=== PATIENT | male | born 1960 | race Caucasian/White ===

== ENCOUNTER → 2017-01-10 | Outpatient (CLI) | payer OTHER | LOC: LABWHC1 15:32 | PROVIDERS: ATTEND Internal Medicine | DX: R91.1 Solitary pulmonary nodule (principal) | CPT/HCPCS: 36415; 86480 ==

== ENCOUNTER 2018-08-19 12:55 | Emergency (ER) | payer OTHER ==
[2018-08-19 13:16] VITALS: RESP 18; TEMP 97.9
[2018-08-19] MEDS ORDERED: ALBUTEROL NEBULIZED 2.5 MG/3 ML INHALATION STA (13:47)
[2018-08-19] MEDS ORDERED: DEXAMETHASONE SOD PHOSPHATE 10 MG/ML 1 ML VIAL IV STA (13:47)
[2018-08-19] MEDS ORDERED: IPRATROPIUM-ALBUTEROL 3 ML NEB INHALATION STA (13:48)
--- NOTE | 2018-08-19 13:56 | ED ---
General Adult HPI - General Chief complaint: Shortness of Breath Stated complaint: SOB Time Seen by Provider: 08/19/18 13:15 Source: patient, RN notes reviewed, old records reviewed Mode of arrival: wheelchair Limitations: no limitations - History of Present Illness Initial comments: 58-year-old male presents for evaluation of cough and dyspnea. Patient has history of COPD and recurrent pneumonia. He states that he has had worsening cough which is productive of yellow mucous for the past 5 days. He continues to smoke. Denies significant chest pain, denies abdominal pain or nausea vomiting. Denies lower extremity pain or swelling. No history of CAD or CHF. Patient does report subjective fever and chills. - Related Data Home Medications Medication Instructions Recorded Confirmed Albuterol Sulfate [Proair Hfa] 2 puff INHALATION RT-QID PRN 06/20/14 08/19/18 Ibuprofen [Motrin] 800 mg PO BID PRN 06/20/14 08/19/18 Mometasone/Formoterol [Dulera 200 2 puff INHALATION BID 07/22/14 08/19/18 Mcg/5 Mcg Inhaler] Previous Rx's Medication Instructions Recorded Azithromycin [Zithromax Z-pack] 0 mg PO DIRECTED #6 tab 08/19/18 Permethrin 5% Cream [Elimite] 1 applic TOPICAL ONCE #1 bottle 08/19/18 predniSONE 50 mg PO DAILY #5 tab 08/19/18 Allergies Allergy/AdvReac Type Severity Reaction Status Date / Time acetaminophen AdvReac Nausea & Verified 08/19/18 13:53 [From Darvocet-N] Vomiting propoxyphene HCl AdvReac Nausea & Verified 08/19/18 13:53 [From Darvon] Vomiting propoxyphene napsylate AdvReac Nausea & Verified 08/19/18 13:53 [From Darvocet-N] Vomiting Review of Systems ROS Statement: Those systems with pertinent positive or pertinent negative responses have been documented in the HPI. ROS Other: All systems not noted in ROS Statement are negative. Past Medical History Past Medical History: COPD, Pneumonia Additional Past Medical History / Comment(s): CHUNG CATARACTS, HX OF MENINGITIS CHILD, states is legally blind History of Any Multi-Drug Resistant Organisms: None Reported Past Surgical History: No Surgical Hx Reported Past Anesthesia/Blood Transfusion Reactions: No Reported Reaction Past Psychological History: No Psychological Hx Reported Smoking Status: Current every day smoker General Exam Limitations: no limitations General appearance: alert, in no apparent distress Head exam: Present: atraumatic, normocephalic Eye exam: Present: normal appearance, PERRL ENT exam: Present: normal exam Neck exam: Present: normal inspection. Absent: tenderness Respiratory exam: Present: respiratory distress, wheezes, decreased breath sounds, prolonged expiratory Cardiovascular Exam: Present: regular rate, normal rhythm GI/Abdominal exam: Present: soft. Absent: distended, tenderness, guarding Extremities exam: Present: normal inspection, normal capillary refill. Absent: pedal edema, calf tenderness Neurological exam: Present: alert, oriented X3, CN II-XII intact. Absent: motor sensory deficit Psychiatric exam: Present: normal affect, normal mood Skin exam: Present: warm, dry, intact. Absent: cyanosis, diaphoretic Course Vital Signs 08/19/18 08/19/18 08/19/18 13:13 13:58 14:04 Temperature 97.9 F Pulse Rate 89 88 94 Respiratory 18 Rate Blood Pressure 105/66 O2 Sat by Pulse 94 L Oximetry EKG Findings - EKG Comments: EKG Findings:: EKG: Sinus rhythm with marked sinus arrhythmia, no ST segment changes, T waves are upright, rate of 64, MD interval 172, QRS duration 88, QTC 412 Medical Decision Making - Medical Decision Making 58-year-old male presenting for evaluation of cough and dyspnea. Patient has history COPD. On initial exam he has decreased air entry and wheezing throughout. No significant distress. He is given albuterol, Atrovent, steroids in the emergency department. Laboratory studies are obtained, normal white blood cell count, stable hemoglobin, patient has elevated AST, ALP, alkaline phosphatase, and total bilirubin is mildly elevated. He has no abdominal pain. He is an alcoholic and admits to regular heavy consumption of alcohol. Chest x-rays obtained, this is negative for focal pneumonia, there is some scarring throughout all lung silverman. On reevaluation patient is feeling much better, improved air entry. He is eager for discharge. He will be prescribed steroids, azithromycin, and will continue nebulized albuterol at home. He is also prescribed permethrin for scabies rash on the left upper extremity - Lab Data Result diagrams: 08/19/18 14:19 08/19/18 14:19 Lab Results 08/19/18 08/19/18 08/19/18 Range/Units 14:19 14:19 14:19 WBC 9.8 (3.8-10.6) k/uL RBC 4.88 (4.30-5.90) m/uL Hgb 17.0 (13.0-17.5) gm/dL Hct 51.6 (39.0-53.0) % MCV 105.8 H (80.0-100.0) fL MCH 34.9 (25.0-35.0) pg MCHC 33.0 (31.0-37.0) g/dL RDW 12.7 (11.5-15.5) % Plt Count 202 (150-450) k/uL Neutrophils % 80 % Lymphocytes % 13 % Monocytes % 4 % Eosinophils % 1 % Basophils % 1 % Neutrophils # 7.8 H (1.3-7.7) k/uL Lymphocytes # 1.2 (1.0-4.8) k/uL Monocytes # 0.4 (0-1.0) k/uL Eosinophils # 0.1 (0-0.7) k/uL Basophils # 0.1 (0-0.2) k/uL Macrocytosis Slight PT (9.0-12.0) sec INR (<1.2) APTT (22.0-30.0) sec Sodium 137 (137-145) mmol/L Potassium 4.3 (3.5-5.1) mmol/L Chloride 102 (98-107) mmol/L Carbon Dioxide 25 (22-30) mmol/L Anion Gap 10 mmol/L BUN 8 L (9-20) mg/dL Creatinine 0.46 L (0.66-1.25) mg/dL Est GFR (CKD-EPI)AfAm >90 (>60 ml/min/1.73 sqM) Est GFR (CKD-EPI)NonAf >90 (>60 ml/min/1.73 sqM) Glucose 97 (74-99) mg/dL Calcium 9.2 (8.4-10.2) mg/dL Magnesium 2.0 (1.6-2.3) mg/dL Total Bilirubin 1.5 H (0.2-1.3) mg/dL AST 167 H (17-59) U/L ALT 110 H (21-72) U/L Alkaline Phosphatase 140 H (38-126) U/L Total Creatine Kinase 31 L (55-170) U/L CK-MB (CK-2) 0.9 (0.0-2.4) ng/mL CK-MB (CK-2) Rel Index 2.9 Troponin I <0.012 (0.000-0.034) ng/mL NT-Pro-B Natriuret Pep pg/mL Total Protein 8.6 H (6.3-8.2) g/dL Albumin 3.7 (3.5-5.0) g/dL 08/19/18 08/19/18 Range/Units 14:19 14:19 WBC (3.8-10.6) k/uL RBC (4.30-5.90) m/uL Hgb (13.0-17.5) gm/dL Hct (39.0-53.0) % MCV (80.0-100.0) fL MCH (25.0-35.0) pg MCHC (31.0-37.0) g/dL RDW (11.5-15.5) % Plt Count (150-450) k/uL Neutrophils % % Lymphocytes % % Monocytes % % Eosinophils % % Basophils % % Neutrophils # (1.3-7.7) k/uL Lymphocytes # (1.0-4.8) k/uL Monocytes # (0-1.0) k/uL Eosinophils # (0-0.7) k/uL Basophils # (0-0.2) k/uL Macrocytosis PT 11.3 (9.0-12.0) sec INR 1.2 H (<1.2) APTT 23.1 (22.0-30.0) sec Sodium (137-145) mmol/L Potassium (3.5-5.1) mmol/L Chloride (98-107) mmol/L Carbon Dioxide (22-30) mmol/L Anion Gap mmol/L BUN (9-20) mg/dL Creatinine (0.66-1.25) mg/dL Est GFR (CKD-EPI)AfAm (>60 ml/min/1.73 sqM) Est GFR (CKD-EPI)NonAf (>60 ml/min/1.73 sqM) Glucose (74-99) mg/dL Calcium (8.4-10.2) mg/dL Magnesium (1.6-2.3) mg/dL Total Bilirubin (0.2-1.3) mg/dL AST (17-59) U/L ALT (21-72) U/L Alkaline Phosphatase (38-126) U/L Total Creatine Kinase (55-170) U/L CK-MB (CK-2) (0.0-2.4) ng/mL CK-MB (CK-2) Rel Index Troponin I (0.000-0.034) ng/mL NT-Pro-B Natriuret Pep 85 pg/mL Total Protein (6.3-8.2) g/dL Albumin (3.5-5.0) g/dL Disposition Clinical Impression: Acute exacerbation of chronic obstructive airways disease, Scabies Disposition: HOME SELF-CARE Condition: Fair Instructions: Chronic Bronchitis (ED), Scabies (ED) Prescriptions: Azithromycin [Zithromax Z-pack] 0 mg PO DIRECTED #6 tab Permethrin 5% Cream [Elimite] 1 applic TOPICAL ONCE #1 bottle predniSONE 50 mg PO DAILY #5 tab Is patient prescribed a controlled substance at d/c from ED?: No Referrals: Mandeep Ernandez DO [Primary Care Provider] - 1-2 days Time of Disposition: 15:42
[2018-08-19 14:27] LABS: Basophils # (A) 0.1 k/uL (0-0.2); Basophils % (A) 1 %; Eosinophils # (A) 0.1 k/uL (0-0.7); Eosinophils % (A) 1 %; HCT 51.6 % (39.0-53.0); Lymphocytes # (A) 1.2 k/uL (1.0-4.8); Lymphocytes % (A) 13 %; MCH 34.9 pg (25.0-35.0); MCV 105.8 fL (80.0-100.0); Macrocytosis Slight; Mean Platelet Volume 7.2; Monocytes # (A) 0.4 k/uL (0-1.0); Monocytes % (A) 4 %; Neutrophils # (A) 7.8 k/uL (1.3-7.7); Neutrophils % (A) 80 %; Platelet Count 202 k/uL (150-450); RBC 4.88 m/uL (4.30-5.90); RDW 12.7 % (11.5-15.5); WBC 9.8 k/uL (3.8-10.6)
[2018-08-19 14:36] LABS: ALT 110 U/L (21-72); AST 167 U/L (17-59); Albumin 3.7 g/dL (3.5-5.0); Alkaline Phosphatase 140 U/L (38-126); Anion Gap 10 mmol/L; Blood Urea Nitrogen 8 mg/dL (9-20); Calcium 9.2 mg/dL (8.4-10.2); Carbon Dioxide 25 mmol/L (22-30); Chloride 102 mmol/L (98-107); Glucose 97 mg/dL (74-99); Potassium 4.3 mmol/L (3.5-5.1); Sodium 137 mmol/L (137-145); Total Bilirubin 1.5 mg/dL (0.2-1.3); Total Protein 8.6 g/dL (6.3-8.2)
[2018-08-19 14:42] LABS: INR 1.2 (<1.2); Partial Thromboplastin Time 23.1 sec (22.0-30.0); Prothrombin Time 11.3 sec (9.0-12.0)
[2018-08-19 14:49] LABS: Creatine Kinase 31 U/L (55-170)
[2018-08-19 15:02] LABS: Creatine Kinase MB 0.9 ng/mL (0.0-2.4); Troponin I <0.012 ng/mL (0.000-0.034)
--- NOTE | 2018-08-19 15:24 | XR ---
EXAMINATION TYPE: XR chest 2V DATE OF EXAM: 08/19/2018 COMPARISON: Outside chest x-ray October 07, 2016. HISTORY: Shortness of breath and syncope for 4 days. TECHNIQUE: Frontal and lateral views of the chest are obtained. FINDINGS: There is chronic parenchymal change with persistent moderate right apical pleural thickenin g and scarring redemonstrated. There is no suspicious new focal air space opacity, pleural effusion, or pneumothorax seen. There is also persistent patchy left basilar scarring and/or atelectasis partner iorly. The cardiac silhouette size is stable and within normal limits. Narrowing at bilateral acromi oclavicular joints remains present. IMPRESSION: Chronic changes without suspicious new acute pulmonary process.
[2018-08-19 16:12] VITALS: BP 101/72; PULSE 66
== END 2018-08-19 16:12 | disposition home or self-care (01) ==
LOC: EC 12:55
DX: J44.1 Chronic obstructive pulmonary disease with (acute) exacerbation (principal); B86 Scabies; R74.8 Abnormal levels of other serum enzymes; R79.89 Other specified abnormal findings of blood chemistry; F17.200 Nicotine dependence, unspecified, uncomplicated; Z79.51 Long term (current) use of inhaled steroids; Z88.5 Allergy status to narcotic agent
CPT/HCPCS: 36415; 94640; 93005; 83880; 80053; 82550; 82553; 83735; 84484; 85025; 85610; 85730; 71046; 99285; 96374; J1100

== ENCOUNTER 2019-12-28 07:41 | Inpatient (IN) | payer OTHER ==
[2019-12-28] MEDS ORDERED: ONDANSETRON 4 MG/2 ML VIAL IVP STA (07:59)
[2019-12-28] MEDS ORDERED: SODIUM CHLORIDE 0.9% 500 ML 500 ML IV STA (07:59)
[2019-12-28] MEDS ORDERED: PANTOPRAZOLE 40 MG/10 ML VIAL IVP STA (07:59)
[2019-12-28] MEDS ORDERED: MORPHINE SULFATE 4 MG/ML SYRINGE IV STA (07:59)
[2019-12-28] MEDS ORDERED: SODIUM CHLORIDE 0.9% 1,000 ML IV STA (07:59)
[2019-12-28] MEDS ORDERED: IPRATROPIUM-ALBUTEROL 3 ML NEB INHALATION STA (08:01)
[2019-12-28 08:25] LABS: Appearance,Urine Clear (Clear); Bilirubin,Urine Negative (Negative); Blood,Urine Negative (Negative); Color,Urine Yellow; Glucose,Urine (UA) Negative (Negative); Ketones,Urine Negative (Negative); Leukocyte Esterase,Urine Negative (Negative); Nitrite,Urine Negative (Negative); PH, Urine 6.5 (5.0-8.0); Protein,Urine Negative (Negative); Specific Gravity,Urine 1.006 (1.001-1.035)
--- NOTE | 2019-12-28 08:33 | ED ---
Abdominal Pain HPI - General Chief Complaint: Abdominal Pain Stated Complaint: abd pain, distention Time Seen by Provider: 12/28/19 07:50 Source: patient, RN notes reviewed, old records reviewed Mode of arrival: ambulatory Limitations: no limitations - History of Present Illness Initial Comments: Patient is a 59-year-old male who presents emergency department with chief complaint of 3 weeks of abdominal distention. Patient reports that he has trouble going to the bathroom and urinating. He reports that he is a daily drinker and drinks approximately 5 beers daily. Patient states that he also is a smoker complains of some chronic wheezing. Patient reports that he did have a small bowel movement yesterday and was able to urinate yesterday. Patient states that he has never had abdominal distention such as this. He reports he has been diagnosed with cirrhosis the past. No history of ascites or paracentesis procedure. Patient denies any vomiting. - Related Data Home Medications Medication Instructions Recorded Confirmed Albuterol Sulfate [Proair Hfa] 2 puff INHALATION RT-QID PRN 06/20/14 12/28/19 Ibuprofen [Motrin] 800 mg PO BID PRN 06/20/14 12/28/19 Albuterol Nebulized [Ventolin 2.5 mg INHALATION RT-Q6H PRN 12/28/19 12/28/19 Nebulized] Fluticasone/Salmeterol [Airduo 1 puff INHALATION RT-DAILY 12/28/19 12/28/19 Respiclick [id number] Mcg] Allergies Allergy/AdvReac Type Severity Reaction Status Date / Time propoxyphene HCl AdvReac Nausea & Verified 12/28/19 09:08 [From Darvon] Vomiting propoxyphene napsylate AdvReac Nausea & Verified 12/28/19 09:08 [From Darvocet-N] Vomiting Review of Systems ROS Statement: Those systems with pertinent positive or pertinent negative responses have been documented in the HPI. ROS Other: All systems not noted in ROS Statement are negative. Past Medical History Past Medical History: COPD, Pneumonia Additional Past Medical History / Comment(s): CHUNG CATARACTS, HX OF MENINGITIS CHILD, states is legally blind History of Any Multi-Drug Resistant Organisms: MRSA Date of last positivie culture/infection: L leg MDRO Source:: 2014 Past Surgical History: No Surgical Hx Reported Past Anesthesia/Blood Transfusion Reactions: No Reported Reaction Past Psychological History: No Psychological Hx Reported Smoking Status: Current every day smoker Past Alcohol Use History: Daily, Heavy Past Drug Use History: None Reported General Exam - General Exam Comments Initial Comments: Alert and oriented 5-year-old male. No significant distress. Limitations: no limitations General appearance: alert, in no apparent distress Head exam: Present: atraumatic, normocephalic, normal inspection Eye exam: Present: normal appearance, PERRL, EOMI. Absent: scleral icterus, conjunctival injection, periorbital swelling ENT exam: Present: normal exam, mucous membranes moist Neck exam: Present: normal inspection. Absent: tenderness, meningismus, lymphadenopathy Respiratory exam: Present: wheezes. Absent: normal lung sounds bilaterally, respiratory distress, rales, rhonchi, stridor Cardiovascular Exam: Present: regular rate, normal rhythm, normal heart sounds. Absent: systolic murmur, diastolic murmur, rubs, gallop, clicks GI/Abdominal exam: Present: soft, tenderness (Patient is abdominal distention.), normal bowel sounds. Absent: distended, guarding, rebound, rigid Extremities exam: Present: normal inspection, full ROM, normal capillary refill. Absent: tenderness, pedal edema, joint swelling, calf tenderness Back exam: Present: normal inspection Neurological exam: Present: alert, oriented X3, CN II-XII intact Psychiatric exam: Present: normal affect, normal mood Skin exam: Present: warm Course Vital Signs 12/28/19 12/28/19 12/28/19 07:44 08:28 08:39 Temperature 98.3 F Pulse Rate 107 H 112 H 112 H Respiratory 18 Rate Blood Pressure 127/73 O2 Sat by Pulse 96 Oximetry 12/28/19 10:09 Temperature 98 F Pulse Rate 96 Respiratory 20 Rate Blood Pressure 103/71 O2 Sat by Pulse 98 Oximetry Medical Decision Making - Medical Decision Making 59-year-old L with a history of a Colles' disorder presents today for abdominal distention for 3 weeks. On exam Patient has clinical ascites. He's never had paracentesis before. Lab work was reviewed. Other transaminases and mildly elevated lipase of 400. Patient also has a heavy smoker. Chest x-ray was reviewed and normal. He denies some mild wheezing and was given DuoNeb. On reevaluation is resting comfortably in bed and appears in no significant distress. I discussed this time Patient will be admitted with consult to GI. Dr. Franklin discussed the case with Dr. Bradley. - Lab Data Result diagrams: 12/28/19 08:00 12/28/19 08:00 Lab Results 12/28/19 12/28/19 12/28/19 Range/Units 08:00 08:00 08:00 WBC 4.2 (3.8-10.6) k/uL RBC 3.58 L (4.30-5.90) m/uL Hgb 13.2 (13.0-17.5) gm/dL Hct 39.4 (39.0-53.0) % MCV 109.9 H (80.0-100.0) fL MCH 36.8 H (25.0-35.0) pg MCHC 33.5 (31.0-37.0) g/dL RDW 15.2 (11.5-15.5) % Plt Count 106 L (150-450) k/uL Neutrophils % 56 % Lymphocytes % 28 % Monocytes % 10 % Eosinophils % 2 % Basophils % 1 % Neutrophils # 2.3 (1.3-7.7) k/uL Lymphocytes # 1.1 (1.0-4.8) k/uL Monocytes # 0.4 (0-1.0) k/uL Eosinophils # 0.1 (0-0.7) k/uL Basophils # 0.0 (0-0.2) k/uL Manual Slide Review Performed Poikilocytosis (manual Present Macrocytosis Marked A Target Cells Present PT 14.6 H (9.0-12.0) sec INR 1.5 H (<1.2) APTT 29.6 (22.0-30.0) sec Sodium 137 (137-145) mmol/L Potassium 3.7 (3.5-5.1) mmol/L Chloride 107 (98-107) mmol/L Carbon Dioxide 21 L (22-30) mmol/L Anion Gap 9 mmol/L BUN 3 L (9-20) mg/dL Creatinine 0.60 L (0.66-1.25) mg/dL Est GFR (CKD-EPI)AfAm >90 (>60 ml/min/1.73 sqM) Est GFR (CKD-EPI)NonAf >90 (>60 ml/min/1.73 sqM) Glucose 94 (74-99) mg/dL Plasma Lactic Acid Sharad (0.7-2.0) mmol/L Calcium 8.0 L (8.4-10.2) mg/dL Total Bilirubin 2.5 H (0.2-1.3) mg/dL AST 127 H (17-59) U/L ALT 38 (4-49) U/L Alkaline Phosphatase 139 H (38-126) U/L Troponin I (0.000-0.034) ng/mL Total Protein 8.6 H (6.3-8.2) g/dL Albumin 2.6 L (3.5-5.0) g/dL Amylase 120 H (30-110) U/L Lipase 401 H (23-300) U/L Urine Color Urine Appearance (Clear) Urine pH (5.0-8.0) Ur Specific Hutchinson (1.001-1.035) Urine Protein (Negative) Urine Glucose (UA) (Negative) Urine Ketones (Negative) Urine Blood (Negative) Urine Nitrite (Negative) Urine Bilirubin (Negative) Urine Urobilinogen (<2.0) mg/dL Ur Leukocyte Esterase (Negative) 12/28/19 12/28/19 12/28/19 Range/Units 08:00 08:00 08:00 WBC (3.8-10.6) k/uL RBC (4.30-5.90) m/uL Hgb (13.0-17.5) gm/dL Hct (39.0-53.0) % MCV (80.0-100.0) fL MCH (25.0-35.0) pg MCHC (31.0-37.0) g/dL RDW (11.5-15.5) % Plt Count (150-450) k/uL Neutrophils % % Lymphocytes % % Monocytes % % Eosinophils % % Basophils % % Neutrophils # (1.3-7.7) k/uL Lymphocytes # (1.0-4.8) k/uL Monocytes # (0-1.0) k/uL Eosinophils # (0-0.7) k/uL Basophils # (0-0.2) k/uL Manual Slide Review Poikilocytosis (manual Macrocytosis Target Cells PT (9.0-12.0) sec INR (<1.2) APTT (22.0-30.0) sec Sodium (137-145) mmol/L Potassium (3.5-5.1) mmol/L Chloride (98-107) mmol/L Carbon Dioxide (22-30) mmol/L Anion Gap mmol/L BUN (9-20) mg/dL Creatinine (0.66-1.25) mg/dL Est GFR (CKD-EPI)AfAm (>60 ml/min/1.73 sqM) Est GFR (CKD-EPI)NonAf (>60 ml/min/1.73 sqM) Glucose (74-99) mg/dL Plasma Lactic Acid Sharad 2.3 H* (0.7-2.0) mmol/L Calcium (8.4-10.2) mg/dL Total Bilirubin (0.2-1.3) mg/dL AST (17-59) U/L ALT (4-49) U/L Alkaline Phosphatase (38-126) U/L Troponin I <0.012 (0.000-0.034) ng/mL Total Protein (6.3-8.2) g/dL Albumin (3.5-5.0) g/dL Amylase (30-110) U/L Lipase (23-300) U/L Urine Color Yellow Urine Appearance Clear (Clear) Urine pH 6.5 (5.0-8.0) Ur Specific Hutchinson 1.006 (1.001-1.035) Urine Protein Negative (Negative) Urine Glucose (UA) Negative (Negative) Urine Ketones Negative (Negative) Urine Blood Negative (Negative) Urine Nitrite Negative (Negative) Urine Bilirubin Negative (Negative) Urine Urobilinogen 2.0 (<2.0) mg/dL Ur Leukocyte Esterase Negative (Negative) 12/28/19 08:33 EKG performed at 8:03 AM shows normal sinus rhythm normal EKG. Ventricular rate of 90 beats were minute. Pulse 170 ms. QRS duration 78 ms. QT QTc is 372/474 ms. - Radiology Data Radiology results: report reviewed Findings suspicious for cirrhotic liver disease with underlying hepatic C ptosis and at least moderate for quadrant ascites. Small gallstone with mild gallbladder wall thickening. Chest x-ray is negative for any acute cardiopulmonary process. Disposition Clinical Impression: Ascites, EtOH dependence, Gallstone, Smoker Disposition: ADMITTED IP TO THIS HOSP Condition: Stable Is patient prescribed a controlled substance at d/c from ED?: No Referrals: Mandeep Ernandez DO [Primary Care Provider] - 1-2 days Time of Disposition: 10:21
[2019-12-28 08:35] LABS: ALT 38 U/L (4-49); AST 127 U/L (17-59); African American GFR (CKD) >90 (>60 ml/min/1.73 sqM); Albumin 2.6 g/dL (3.5-5.0); Alkaline Phosphatase 139 U/L (38-126); Amylase 120 U/L (30-110); Anion Gap 9 mmol/L; Blood Urea Nitrogen 3 mg/dL (9-20); Carbon Dioxide 21 mmol/L (22-30); Chloride 107 mmol/L (98-107); Glucose 94 mg/dL (74-99); Non-African American GFR(CKD) >90 (>60 ml/min/1.73 sqM); Potassium 3.7 mmol/L (3.5-5.1); Sodium 137 mmol/L (137-145); Total Bilirubin 2.5 mg/dL (0.2-1.3); Total Protein 8.6 g/dL (6.3-8.2)
[2019-12-28] MEDS ORDERED: LORazepam 2 MG/ML INJ IV PRN ×3 (08:39)
[2019-12-28] MEDS ORDERED: THIAMINE 100 MG/ML 2 ML VIAL IM STA (08:39)
[2019-12-28] MEDS ORDERED: SODIUM CHLORIDE 0.9% 1,000 ML with MVI, ADULT NO.4 WITH VIT K 10 ML, THIAMINE 100 MG, F... IV ONE ×4 (08:40)
[2019-12-28] MEDS ORDERED: SODIUM CHLORIDE 0.9% 1,000 ML IV ONE (08:40)
[2019-12-28 08:41] LABS: Basophils % (A) 1 %; Eosinophils # (A) 0.1 k/uL (0-0.7); Eosinophils % (A) 2 %; HCT 39.4 % (39.0-53.0); HGB 13.2 gm/dL (13.0-17.5); Lymphocytes # (A) 1.1 k/uL (1.0-4.8); Lymphocytes % (A) 28 %; MCH 36.8 pg (25.0-35.0); MCHC 33.5 g/dL (31.0-37.0); MCV 109.9 fL (80.0-100.0); Macrocytosis Marked; Mean Platelet Volume 7.6; Monocytes # (A) 0.4 k/uL (0-1.0); Monocytes % (A) 10 %; Neutrophils # (A) 2.3 k/uL (1.3-7.7); Neutrophils % (A) 56 %; Platelet Count 106 k/uL (150-450); RBC 3.58 m/uL (4.30-5.90); RDW 15.2 % (11.5-15.5); WBC 4.2 k/uL (3.8-10.6)
[2019-12-28 08:46] LABS: INR 1.5 (<1.2); Partial Thromboplastin Time 29.6 sec (22.0-30.0); Prothrombin Time 14.6 sec (9.0-12.0)
--- NOTE | 2019-12-28 08:51 | XR ---
EXAMINATION TYPE: XR chest 2V DATE OF EXAM: 12/28/2019 COMPARISON: 08/19/2019 and 09/29/2016 HISTORY: Shortness of breath TECHNIQUE: Frontal and lateral views of the chest are obtained. FINDINGS: Scattered senescent parenchymal changes noted. Hyperinflation compatible with COPD. Left apical pleural thickening with associated nodularity persists. Left hilar retraction and hilar c alcifications. This may be related to remote granulomatous disease. History of prior left apical cavi tary infection. Heart size is stable. Mediastinal structures are stable and grossly unremarkable. No evidence for hilar prominence. Degenerative changes dorsal spine. IMPRESSION: 1. No evidence for acute pulmonary disease.
[2019-12-28 09:04] LABS: Poikilocytosis (M) Present; Target Cells Present
--- NOTE | 2019-12-28 09:05 | CT ---
EXAMINATION TYPE: CT abdomen pelvis w con DATE OF EXAM: 12/28/2019 COMPARISON: None HISTORY: pain, distention CT DLP: 751.3 mGycm CONTRAST: CT scan of the abdomen and pelvis is performed without Oral Contrast and with IV Contrast, patient in jected with 100 mL of Isovue 300. FINDINGS: LUNG BASES-: No visible nodule. No infiltrate. LIVER/GB: Small gallstone is noted with mild gallbladder wall thickening. Peripheral nodular hepati c contour is suspicious for cirrhotic liver disease. Hepatic granulomas identified. Hepatic steatosis . No space occupying hepatic lesion. Biliary tree is of normal caliber. PANCREAS: No inflammation. No distinct mass. SPLEEN: No splenic enlargement. No lesion seen. ADRENALS: No nodule. No thickening. KIDNEYS/BLADDER: No hydronephrosis. No nephrolithiasis. Renal cystic changes left kidney. Urinary b ladder grossly unremarkable. BOWEL: Normal appendix. Normal bowel caliber. No inflammation. GENITAL ORGANS: No gross abnormality. LYMPH NODES: No greater than 1cm abdominal or pelvic lymph nodes are appreciated. AORTA: No significant abnormality. OSSEOUS STRUCTURES: No significant abnormality is seen. OTHER: At least Moderate four-quadrant ascites. IMPRESSION: 1. Findings suspicious for cirrhotic liver disease with underlying hepatic steatosis and at least mod erate four-quadrant ascites. 2. Small gallstone with mild gallbladder wall thickening.
[2019-12-28] MEDS ORDERED: NICOTINE 21MG/24HR PATCH TRANSDERM STA (09:41)
[2019-12-28] MEDS ORDERED: METOPROLOL TARTRATE 12.5 MG TAB PO STA (09:54)
[2019-12-28] MEDS ORDERED: DIAZEPAM 5 MG/ML 2 ML INJ IVP SCH (10:00)
[2019-12-28] MEDS ORDERED: KETOROLAC 30 MG/ML 1 ML VIAL IVP PRN (10:21)
[2019-12-28] MEDS ORDERED: MORPHINE SULFATE 4 MG/ML SYRINGE IV PRN (10:21)
[2019-12-28] MEDS ORDERED: ACETAMINOPHEN TAB 325 MG TAB PO PRN (10:21)
[2019-12-28] MEDS ORDERED: NALOXONE 0.4 MG/ML 1 ML VIAL IV PRN (10:21)
[2019-12-28] MEDS ORDERED: ALBUTEROL INHALER 60 PUFF/8 GM INHALER INHALATION PRN (10:26)
[2019-12-28] MEDS ORDERED: IBUPROFEN 800 MG TAB PO PRN (10:26)
[2019-12-28] MEDS ORDERED: ALBUTEROL NEBULIZED 2.5 MG/3 ML INHALATION PRN (10:26)
[2019-12-28] MEDS: DIAZEPAM 5 MG TAB PO SCH ×2 (17:56→21:33)
[2019-12-28] MEDS: FUROSEMIDE 40 MG TAB PO SCH (17:56)
[2019-12-28] MEDS: THIAMINE 100 MG TAB PO SCH (17:56)
[2019-12-28 19:34] LABS: Appearance,BF Clear; Nucleated Cells, Body Fluid 37 /uL; RBC, Body Fluid 43 /uL
[2019-12-28 19:39] LABS: Mononuclear WBC,Body Fluid 95 %; Polynuclear WBC,Body Fluid 5 %; Total Cells Counted,Body Fluid 100
[2019-12-28] MEDS ORDERED: SYMBICORT 160-4.5 MCG INHALER INHALATION SCH (20:00)
--- NOTE | 2019-12-28 20:03 | CONS ---
CONSULTATION DATE OF DICTATION: December 28, 2019. REQUESTING PHYSICIAN: Dr. Mandeep Mireles. REASON FOR CONSULTATION: Abdominal distention. HISTORY OF PRESENT ILLNESS: Patient is a 59-year-old white male with history of heavy alcohol abuse, admitted to the hospital with 3 weeks of abdominal distention. He has been drinking about 5 beers a day for almost 20 years. Came to the emergency room and was noted to have new onset ascites and hence we are consulted . The patient has no prior history of chronic liver disease. He drinks about 5 beers a day for almost 20 years. He denies any nausea, vomiting. He reports no rectal bleeding or melena. PAST MEDICAL HISTORY: Significant for COPD and pneumonia. PAST SURGICAL HISTORY: Bilateral cataract surgery. MEDICATIONS: At home include Ventolin, ProAir. ALLERGIES: DARVOCET AND DARVON. SOCIAL HISTORY: Chronic smoker. Heavy alcohol use as mentioned above. FAMILY HISTORY: Unremarkable. REVIEW OF SYSTEMS: Cardiopulmonary: No chest pain, shortness of breath. Genitourinary: No dysuria or hematuria. MUSCULOSKELETAL unremarkable. SKIN unremarkable. ENDOCRINE unremarkable. PSYCHIATRIC unremarkable. NEUROLOGY unremarkable. ENT/vision unremarkable. CONSTITUTIONAL: Weight loss of 10 pounds. No fever, chills, night sweats. PHYSICAL EXAMINATION: He appears comfortable. Blood pressure 123/78, pulse rate 86, temperature 98.8. HEENT examination: Unremarkable. Conjunctivae pink. Sclerae anicteric. Oral cavity no lesions. NECK: No JVD or lymph node enlargement. CHEST was clear to auscultation. HEART: Regular rate and rhythm. ABDOMEN: Soft, it was distended. Bowel sounds are positive. There was fluid thrill noted. EXTREMITIES no pedal edema. SKIN no rashes. NEUROLOGIC: Alert and oriented x3. No focal deficits. LABS: WBC 4.2, hemoglobin at 11.2, platelets 106. INR is 1.5. T-bilirubin is 2.5, AST 127, ALT 38. BUN and creatinine are within normal limits. Lactic acid was 2.3. IMPRESSION: 1. New onset ascites, most likely related to underlying alcoholic cirrhosis of the liver with portal hypertension. 2. Thrombocytopenia secondary to chronic liver disease. 3. Mild coagulopathy. 4. Elevated ALT/AST more than ALT and mild jaundice, all consistent with alcoholic liver disease. RECOMMENDATIONS: 1. Start on Lasix 40 mg twice daily. 2. Aldactone 50 mg twice daily. 3. Schedule for diagnostic and therapeutic paracentesis. 4. Abstinence from alcohol. 5. Repeat labs in the morning. 6. Hepatitis serologies for A, B and C and we will follow with you closely. Thank you for this consultation. SHAZIA / DANIELLE: [id number] /
[2019-12-28] MEDS: SPIRONOLACTONE 25 MG TAB PO SCH (20:21)
--- NOTE | 2019-12-28 20:37 | P.HPIM ---
History of Present Illness H&P Date: 12/28/19 Chief Complaint: Abdominal distention History of presenting complaint: This is a pleasant [address] Mireles. Patient been drinking alcohol for quite some time up to 4 beers a day. He is a large [place] [facility]. Smokes a pack a day. Prazosin multitudinous symptoms including bloating of his abdomen coming on and a few days. Some tenderness. No fever no chills. No swelling of the legs. Patient is also short of breath cough or sneezing bringing up some green phlegm. No fever no chills. Admitted to the ER. Weak tired rundown. Has been losing some weight. Review of systems: GEN.: Tired some weight loss EYES: None HEENT: None NECK: None RESPIRATORY: As above CARDIOVASCULAR: None GASTROINTESTINAL: As above GENITOURINARY: None MUSCULOSKELETAL: Muscle wasting LYMPHATICS: None HEMATOLOGICAL: None PSYCHIATRY: None NEUROLOGICAL: None Past medical history to include: Hypertension Social history: Drinks up to 4 beers a day for large cans he sees about 24 hours, smokes a pack a day, lives alone. On disability Family history: Reviewed, noncontributory to presentation Physical examination: VITAL SIGNS: 98.3, 107, 18, 127/73, 96% room air GENERAL: [BMI 19.6 sitting up awake, spider nevi on the chest wall. EYES: Pupils equal. Conjunctiva normal. HEENT: External appearance of nose and ears normal, oral cavity grossly normal. NECK: JVD not raised; masses not palpable. HEART: First and second heart sounds are normal; no edema. LUNGS: Respiratory rate increased; diminished breath sounds some wheezing. ABDOMEN: Soft, distended tense, diffuse tenderness no guarding or rigidity liver spleen not palpable, no masses palpable. Dullness to percussion PSYCH: Alert and oriented x3; mood and affect anxiousl. MUSCULOSKELETAL: Wasting of muscles NEUROLOGICAL: Cranial nerves grossly intact; no facial asymmetry, power and sensation grossly intact. LYMPHATICS: No lymph nodes palpable in the axilla and neck INVESTIGATIONS, reviewed in the clinical context: White count 4.2 hemoglobin 13.2 platelets 106 pro time 14.6 potassium 3.7 Bun 3 creatinine 0.6 Lactic acid 2.3 bilirubin 2.5 AST 127 ALT 38 albumin 2.6 Amylase 120 lipase 401 EKG tracing personally reviewed by me-normal sinus rhythm Chest x-ray film personally reviewed by me-hyperinflation with prominent pulmonary artery CT abdomen and pelvis-spoke also, peripheral nodular hepatic contour, hepatic steatosis,ascites Assessment: -Large tense ascites in a patient with suspected alcoholic cirrhosis. Does no fever no chills no white count and hence doubt infection. Abdominal discomfort from tense ascites -Alcoholic cirrhosis -Suspect secondary portal hypertension -Moderate protein calorie malnutrition with muscle wasting, decreased albumin -Alcoholic/nutritional myopathy -Acute COPD exacerbation in a current smoker -Acute tracheobronchitis -Vitamin K deficiency from cirrhosis, causing prolonged pro time Plan: Care was discussed with the patient. GI was consulted. We'll put the patient on Valium 5 mg every 8 for DVT prophylaxis. 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 Add bronchodilators and inhaled steroids. Patient will need paracentesis. Also add oral vitamin K Smoke cessation counseling: This was done with the patient. Nicotine patch is being given. More than 3 minutes was spent for this. Past Medical History Past Medical History: COPD, Pneumonia Additional Past Medical History / Comment(s): CHUNG CATARACTS, HX OF MENINGITIS CHILD, states is legally blind History of Any Multi-Drug Resistant Organisms: MRSA Date of last positivie culture/infection: L leg MDRO Source:: 2014 Past Surgical History: No Surgical Hx Reported Past Anesthesia/Blood Transfusion Reactions: No Reported Reaction Past Psychological History: No Psychological Hx Reported Smoking Status: Current every day smoker Past Alcohol Use History: Daily, Heavy Past Drug Use History: None Reported - Past Family History Father Family Medical History: Cancer Mother Family Medical History: Cancer, Dementia Medications and Allergies Home Medications Medication Instructions Recorded Confirmed Type Albuterol Sulfate [Proair Hfa] 2 puff INHALATION RT-QID PRN 06/20/14 12/28/19 History Ibuprofen [Motrin] 800 mg PO BID PRN 06/20/14 12/28/19 History Albuterol Nebulized [Ventolin 2.5 mg INHALATION RT-Q6H PRN 12/28/19 12/28/19 History Nebulized] Fluticasone/Salmeterol [Airduo 1 puff INHALATION RT-DAILY 12/28/19 12/28/19 History Respiclick 113-14 Mcg] Allergies Allergy/AdvReac Type Severity Reaction Status Date / Time propoxyphene HCl AdvReac Nausea & Verified 12/28/19 09:08 [From Darvon] Vomiting propoxyphene napsylate AdvReac Nausea & Verified 12/28/19 09:08 [From Darvocet-N] Vomiting Physical Exam Vitals: Vital Signs Temp Pulse Pulse Resp BP BP Pulse Ox 12/28/19 18:15 88 116/71 93 L 12/28/19 18:00 95 113/87 93 L 12/28/19 17:45 89 94 L 12/28/19 17:30 98.0 F 86 114/74 94 L 12/28/19 17:19 87 17 101/61 95 12/28/19 17:08 84 16 97/61 95 12/28/19 16:55 80 14 103/65 98 12/28/19 16:45 78 14 104/65 97 12/28/19 16:35 76 16 101/62 96 12/28/19 16:27 80 16 122/75 96 12/28/19 16:18 97.8 F 85 16 115/70 97 12/28/19 15:00 98.3 F 92 18 107/68 94 L 12/28/19 12:45 98.0 F 86 20 123/78 90 L 12/28/19 11:17 98 F 97 20 114/87 98 12/28/19 10:09 98 F 96 20 103/71 98 12/28/19 08:39 112 H 12/28/19 08:28 112 H 12/28/19 07:44 98.3 F 107 H 18 127/73 96 Intake and Output 12/28/19 12/28/19 12/28/19 06:59 14:59 22:59 Other: Voiding Method Toilet # Voids 1 Weight 56.699 kg Results CBC & Chem 7: 12/28/19 08:00 12/28/19 08:00 Labs: Abnormal Lab Results - Last 24 Hours (Table) 12/28/19 12/28/19 12/28/19 Range/Units 08:00 08:00 08:00 RBC 3.58 L (4.30-5.90) m/uL MCV 109.9 H (80.0-100.0) fL MCH 36.8 H (25.0-35.0) pg Plt Count 106 L (150-450) k/uL Macrocytosis Marked A PT 14.6 H (9.0-12.0) sec INR 1.5 H (<1.2) Carbon Dioxide 21 L (22-30) mmol/L BUN 3 L (9-20) mg/dL Creatinine 0.60 L (0.66-1.25) mg/dL Plasma Lactic Acid Sharad (0.7-2.0) mmol/L Calcium 8.0 L (8.4-10.2) mg/dL Total Bilirubin 2.5 H (0.2-1.3) mg/dL AST 127 H (17-59) U/L Alkaline Phosphatase 139 H (38-126) U/L Total Protein 8.6 H (6.3-8.2) g/dL Albumin 2.6 L (3.5-5.0) g/dL Amylase 120 H (30-110) U/L Lipase 401 H (23-300) U/L 12/28/19 12/28/19 12/28/19 Range/Units 08:00 12:10 15:46 RBC (4.30-5.90) m/uL MCV (80.0-100.0) fL MCH (25.0-35.0) pg Plt Count (150-450) k/uL Macrocytosis PT (9.0-12.0) sec INR (<1.2) Carbon Dioxide (22-30) mmol/L BUN (9-20) mg/dL Creatinine (0.66-1.25) mg/dL Plasma Lactic Acid Sharad 2.3 H* 3.4 H* 2.2 H* (0.7-2.0) mmol/L Calcium (8.4-10.2) mg/dL Total Bilirubin (0.2-1.3) mg/dL AST (17-59) U/L Alkaline Phosphatase (38-126) U/L Total Protein (6.3-8.2) g/dL Albumin (3.5-5.0) g/dL Amylase (30-110) U/L Lipase (23-300) U/L Thrombosis Risk Factor Assmnt - Choose All That Apply Any of the Below Risk Factors Present?: Yes Each Factor Represents 1 point: Abnormal pulmonary function (COPD), Age 41-60 years Other Risk Factors: No Other congenital or acquired thrombophilia - If yes, enter type in comment: No Thrombosis Risk Factor Assessment Total Risk Factor Score: 2 Thrombosis Risk Factor Assessment Level: Low Risk
[2019-12-28] MEDS: IPRATROPIUM-ALBUTEROL 3 ML NEB INHALATION SCH (20:58)
[2019-12-28] MEDS: BUDESONIDE 1 MG/2 ML NEBU INHALATION SCH (21:00)
[2019-12-28] MEDS: PHYTONADIONE ORAL 5 MG/5 ML ORAL.SYRG PO SCH (21:32)
[2019-12-29 00:55] LABS: Total Protein, Body Fluid 540 mg/dL
[2019-12-29 07:21] LABS: INR 1.6 (<1.2); Prothrombin Time 15.6 sec (9.0-12.0)
[2019-12-29 07:35] LABS: ALT 33 U/L (4-49); AST 115 U/L (17-59); African American GFR (CKD) >90 (>60 ml/min/1.73 sqM); Albumin 2.3 g/dL (3.5-5.0); Alkaline Phosphatase 137 U/L (38-126); Amylase 87 U/L (30-110); Anion Gap 5 mmol/L; Blood Urea Nitrogen 5 mg/dL (9-20); Calcium 7.5 mg/dL (8.4-10.2); Carbon Dioxide 23 mmol/L (22-30); Chloride 106 mmol/L (98-107); Non-African American GFR(CKD) >90 (>60 ml/min/1.73 sqM); Potassium 3.6 mmol/L (3.5-5.1); Sodium 134 mmol/L (137-145); Total Bilirubin 2.6 mg/dL (0.2-1.3); Total Protein 7.7 g/dL (6.3-8.2)
[2019-12-29 07:36] LABS: Glucose 105 mg/dL (74-99)
[2019-12-29] MEDS ORDERED: PANTOPRAZOLE 40 MG/10 ML VIAL IV SCH (09:00)
[2019-12-29] MEDS: BUDESONIDE 1 MG/2 ML NEBU INHALATION SCH ×2 (09:19→20:21)
[2019-12-29] MEDS: IPRATROPIUM-ALBUTEROL 3 ML NEB INHALATION SCH ×4 (09:19→20:21)
--- NOTE | 2019-12-29 09:28 | PN ---
PROGRESS NOTE DATE OF DICTATION: 12/29/2019 This patient is a 59-year-old white male with history of alcoholic cirrhosis of the liver and new-onset ascites, admitted to the hospital with abdominal distention. He underwent large-volume paracentesis yesterday and approximately 3 liters of fluid was removed. The patient is feeling much better. He is on Lasix 40 mg twice daily and Aldactone 50 mg twice daily and has increased urination. Overall he denies any complaints. PHYSICAL EXAMINATION: He appears comfortable, in no apparent distress. VITAL SIGNS: Stable. Blood pressure is 130/86, pulse rate 82 per minute and afebrile. HEENT examination unremarkable. Conjunctivae pink. Sclerae anicteric. Oral cavity no lesions. NECK: No JVD or lymph node enlargement. CHEST: Clear to auscultation. HEART: Regular rate and rhythm. ABDOMEN: Soft. Bowel sounds are positive. No organomegaly. There is still some fluid noted in the abdomen. Fluid thrill positive. EXTREMITIES: No pedal edema. SKIN: No rashes. NEUROLOGIC: Alert and oriented x3. No focal deficits. LABS: Labs done today show sodium 134, potassium 3.6, chloride 106, CO2 23, BUN 5, creatinine 0.6, bilirubin 2.6, AST 115, ALT 33. Fluid analysis shows albumin less than 1, total protein 540 mg, WBC 5. IMPRESSION: 1. New-onset ascites. Fluid analysis showed more than 1.1, consistent with portal hypertension secondary to alcoholic liver disease. 2. Alcoholic cirrhosis of the liver with portal hypertension. 3. Elevated liver function tests consistent with alcoholic liver disease. 4. Mild coagulopathy secondary to underlying liver disease. RECOMMENDATIONS: 1. Continue with Lasix 40 mg twice daily. 2. Aldactone 50 mg twice daily. 3. Low-salt diet. 4. Daily weight. 5. He can be discharged home with outpatient followup in 2 weeks. Thank you for this consultation. MMODL / IJN: [id number] /
[2019-12-29] MEDS: NICOTINE 21MG/24HR PATCH TRANSDERM SCH (09:48)
[2019-12-29] MEDS: SPIRONOLACTONE 25 MG TAB PO SCH ×2 (09:49→20:45)
[2019-12-29] MEDS: DIAZEPAM 5 MG TAB PO SCH ×3 (09:49→20:45)
[2019-12-29] MEDS: THIAMINE 100 MG TAB PO SCH ×2 (09:49→17:11)
[2019-12-29] MEDS: FUROSEMIDE 40 MG TAB PO SCH ×2 (09:49→15:58)
[2019-12-29 11:03] LABS: Hepatitis A Antibody IgM Non-Reactive (Non-Reactive); Hepatitis B Core IgM Non-Reactive (Non-Reactive); Hepatitis B Surface Antigen Non-Reactive (Non-Reactive); Hepatitis C IgG Antibody Reactive (Non-Reactive)
--- NOTE | 2019-12-29 13:48 | P.PN ---
Progress Note - Text Progress Note Date: 12/29/19 Chief Complaint: Abdominal distention History of presenting complaint: This is a pleasant [address] Mireles. Patient been drinking alcohol for quite some time up to 4 beers a day. He is a large distended abdomen. Smokes a pack a day. Presented with multiple symptoms including bloating of his abdomen coming on and a few days. Some tenderness. No fever no chills. No swelling of the legs. Patient is also short of breath cough or sneezing bringing up some green phlegm.. Weak tired rundown. Has been losing some weight. Admitted with-acute COPD exacerbation with acute tracheobronchitis and alcoholic cirrhosis ascites Today-breathing is better. Had about 3 L of acetic fluid removed. Laying in bed. Review of systems: Was done for constitutional, cardiovascular, GI, pulmonary. relevant finding as above Active Medications Albuterol Sulfate (Ventolin Nebulized) 2.5 mg INHALATION RT-Q6H PRN PRN Reason: Shortness Of Breath Albuterol/Ipratropium (Duoneb 0.5 Mg-3 Mg/3 Ml Soln) 3 ml INHALATION RT-QID [facility] Last Admin: 12/29/19 12:22 Dose: 3 ml Documented by: Budesonide (Pulmicort) 1 mg INHALATION RT-BID [facility] Last Admin: 12/29/19 09:19 Dose: 1 mg Documented by: Diazepam (Valium) 5 mg PO TID [facility] Last Admin: 12/29/19 09:49 Dose: 5 mg Documented by: Furosemide (Lasix) 40 mg PO BID@0900,1600 [facility] Last Admin: 12/29/19 09:49 Dose: 40 mg Documented by: Lorazepam (Ativan) 1 mg IV Q2HR PRN PRN Reason: CIWA 8 or 9 Lorazepam (Ativan) 1 mg IV Q1HR PRN PRN Reason: CIWA 10 to 15 Lorazepam (Ativan) 2 mg IV Q10M PRN PRN Reason: CIWA 16 or higher Stop: 12/30/19 08:39 Naloxone HCl (Narcan) 0.2 mg IV Q2M PRN PRN Reason: Opioid Reversal Nicotine (Habitrol 21mg/24hr Patch) 1 patch TRANSDERM DAILY [facility] Last Admin: 12/29/19 09:48 Dose: 1 patch Documented by: Phytonadione (Vitamin K Oral) 10 mg PO HS [facility] Last Admin: 12/28/19 21:32 Dose: 10 mg Documented by: Spironolactone (Aldactone) 50 mg PO BID [facility] Last Admin: 12/29/19 09:49 Dose: 50 mg Documented by: Thiamine HCl (Vitamin B-1) 100 mg PO BID-W/MEALS [facility] Last Admin: 12/29/19 09:49 Dose: 100 mg Documented by: Physical examination: VITAL SIGNS: 97.9, 70, 14, 109/70, 92% on 3 L GENERAL: Laying in bed,, spider nevi on the chest wall. EYES: Pupils equal. Conjunctiva normal. HEENT: External appearance of nose and ears normal, oral cavity grossly normal. NECK: JVD not raised; masses not palpable. HEART: First and second heart sounds are normal; no edema. LUNGS: Respiratory rate increased; diminished breath sounds some wheezing. ABDOMEN: Soft, less distended, no guarding or rigidity liver spleen not palpable, no masses palpable. PSYCH: Alert and oriented x3; mood and affect anxiousl. MUSCULOSKELETAL: Wasting of muscles INVESTIGATIONS, reviewed in the clinical context: Sodium 134 potassium 3.6 White count 4.2 hemoglobin 13.2 platelets 106 pro time 14.6 potassium 3.7 Bun 3 creatinine 0.6 Lactic acid 2.3 bilirubin 2.5 AST 127 ALT 38 albumin 2.6 Amylase 120 lipase 401 EKG tracing personally reviewed by me-normal sinus rhythm Chest x-ray film personally reviewed by me-hyperinflation with prominent pulmonary artery CT abdomen and pelvis-spoke also, peripheral nodular hepatic contour, hepatic steatosis,ascites Hepatitis A IgM antibody negative, hepatitis B surface antigen negative, hepatitis B core IgM antibody negative, hepatitis C IgG antibody reactive Assessment: -Large tense ascites in a patient with suspected alcoholic cirrhosis. Status post large volume paracentesis-3 L removed -Alcoholic cirrhosis -Suspect secondary portal hypertension -Moderate protein calorie malnutrition with muscle wasting, decreased albumin -Alcoholic/nutritional myopathy -Acute COPD exacerbation in a current smoker, improving -Acute tracheobronchitis -Vitamin K deficiency from cirrhosis, causing prolonged pro time Plan: Discussed with patient. Follow from a pulmonary stand for another 24 hours and hopefully discharge tomorrow. Encouraged to ambulate.
[2019-12-29 15:51] VITALS: RESP 16
[2019-12-29] MEDS: PHYTONADIONE ORAL 5 MG/5 ML ORAL.SYRG PO SCH (20:45)
[2019-12-30] MEDS: BUDESONIDE 1 MG/2 ML NEBU INHALATION SCH (06:56)
[2019-12-30] MEDS: IPRATROPIUM-ALBUTEROL 3 ML NEB INHALATION SCH ×2 (06:56→11:00)
[2019-12-30 07:08] LABS: ALT 33 U/L (4-49); AST 113 U/L (17-59); African American GFR (CKD) >90 (>60 ml/min/1.73 sqM); Albumin 2.1 g/dL (3.5-5.0); Alkaline Phosphatase 95 U/L (38-126); Amylase 71 U/L (30-110); Anion Gap 6 mmol/L; Blood Urea Nitrogen 5 mg/dL (9-20); Calcium 7.2 mg/dL (8.4-10.2); Carbon Dioxide 29 mmol/L (22-30); Chloride 98 mmol/L (98-107); Glucose 122 mg/dL (74-99); Non-African American GFR(CKD) >90 (>60 ml/min/1.73 sqM); Potassium 3.1 mmol/L (3.5-5.1); Sodium 133 mmol/L (137-145); Total Bilirubin 2.3 mg/dL (0.2-1.3); Total Protein 7.2 g/dL (6.3-8.2)
[2019-12-30 07:11] LABS: INR 1.7 (<1.2); Prothrombin Time 16.6 sec (9.0-12.0)
[2019-12-30] MEDS: THIAMINE 100 MG TAB PO SCH (08:02)
[2019-12-30] MEDS: NICOTINE 21MG/24HR PATCH TRANSDERM SCH (08:02)
[2019-12-30] MEDS: FUROSEMIDE 40 MG TAB PO SCH (08:02)
[2019-12-30] MEDS: DIAZEPAM 5 MG TAB PO SCH (08:02)
[2019-12-30] MEDS: SPIRONOLACTONE 25 MG TAB PO SCH (08:02)
[2019-12-30 09:11] VITALS: BP 115/68; TEMP 97.8
--- NOTE | 2019-12-30 11:00 | PN ---
PROGRESS NOTE DATE OF DICTATION: 12/30/2019 The patient is a 59-year-old, pleasant, white male admitted to the hospital with new onset ascites and alcoholic cirrhosis of the liver. He underwent large-volume paracentesis and 5 liters was removed two days ago. He is presently on Lasix 40 mg twice daily and Aldactone 50 mg twice daily. He was feeling much better yesterday. Today complaining of abdominal pain and abdominal distention. No nausea or vomiting. He has decreased appetite. He reports no fevers, chills, night sweats. PHYSICAL EXAMINATION: He appears comfortable. Blood pressure is 115/68, pulse rate 105, temperature 97.8. HEENT: Unremarkable. Conjunctivae pink. Sclerae anicteric. Oral cavity no lesions. NECK: No JVD or lymph node enlargement. CHEST: Clear to auscultation. ABDOMEN: Distended. Moderate amount of ascites seen. It was nontender. EXTREMITIES: No pedal edema. SKIN: No rashes. NEUROLOGIC: He is alert and oriented x3. No focal deficits. LABS: Labs done from today: CBC was not done. INR was 1.7. Sodium 133, potassium 3.1. BUN and creatinine are normal. Total bilirubin is 2.3. AST 113, ALT 32. Hepatitis serology shows positive hepatitis C antibody. IMPRESSION: 1. New onset ascites. Fluid analysis consistent with portal hypertension. Presently status post large-volume paracentesis two days ago, now on Lasix 40 mg b.i.d. and Aldactone 50 mg b.i.d. and diuresing well. 2. Alcoholic cirrhosis of the liver with portal hypertension. 3. Positive hepatitis C antibody. 4. Hyponatremia, which is gradually improving. 5. Elevated liver function tests consistent with alcoholic liver disease. RECOMMENDATIONS: 1. Continue with Lasix and Aldactone. 2. Low-salt diet. 3. Obtain HCV RNA by PCR with genotype. 4. Increase ambulation. 5. Low-salt diet. 6. We will follow with you closely during his hospital stay. Thank you for this consultation. MMODL / IJN: [id number] /
[2019-12-30 11:11] VITALS: PULSE 76
--- NOTE | 2019-12-31 08:10 | US ---
EXAMINATION TYPE: US paracentesis abd w/image DATE OF EXAM: 12/28/2019 COMPARISON: NONE HISTORY: Ascites. PROCEDURE: Maximal barrier technique was utilized. The skin overlying a suitable pocket of fluid was localized with ultrasound and the overlying skin was prepped and draped. Ultrasound was utilized with sterile technique. Lidocaine was used for local anesthesia and a skin chong made with a scalpel. Catheter was advanced under direct ultrasound guidance into a suitable pocket of fluid and approximately 2.2 liter s of serous fluid were removed. Catheter was withdrawn and hemostasis achieved. There is no immedia te complication; the patient is discharged in stable condition. Specimen obtained for laboratory anal ysis. IMPRESSION: STATUS POST ULTRASOUND GUIDED PARACENTESIS FOR PALLIATION OF ASCITES. THIS PROCEDURE WA S PERFORMED BY THE UNDERSIGNED.
[2019-12-31 08:48] LABS: Albumin, Fluid Source Paracentesis Fluid
--- NOTE | 2019-12-31 23:28 | P.DS ---
Providers Date of admission: 12/28/19 09:55 Expected date of discharge: 12/30/19 Attending physician: Isaac Hodge Consults: 12/28/19 10:21 Consult Physician Stat Consulting Provider: Lissa Vincent Consult Reason/Comments: ascites Do you want consulting provider notified?: Yes Primary care physician: Mandeep [place] Hospital Course: Chief Complaint: Abdominal distention History of presenting complaint: This is a pleasant [address] Mireles. Patient been drinking alcohol for quite some time up to 4 beers a day. He is a large distended abdomen. Smokes a pack a day. Presented with multiple symptoms including bloating of his abdomen coming on and a few days. Some tenderness. No fever no chills. No swelling of the legs. Patient is also short of breath cough or sneezing bringing up some green phlegm.. Weak tired rundown. Has been losing some weight. Admitted with-acute COPD exacerbation with acute tracheobronchitis and alcoholic cirrhosis ascites. 3 L of acetic fluid was removed. Treated with bronchodilator steroids. Today-Breathing much improved. Appetite better. Has been out of bed. Consultation: Dr. Baltazar Vincent from GI Physical examination: VITAL SIGNS: 97.8, 80, 16, 11 5/68, 92% on room air GENERAL: Laying in bed,, spider nevi on the chest wall. EYES: Pupils equal. Conjunctiva normal. HEENT: External appearance of nose and ears normal, oral cavity grossly normal. NECK: JVD not raised; masses not palpable. HEART: First and second heart sounds are normal; no edema. LUNGS: Respiratory rate normal; improving air entry ABDOMEN: Soft, less distended, no guarding or rigidity liver spleen not palpable, no masses palpable. PSYCH: Alert and oriented x3; mood and affect anxiousl. MUSCULOSKELETAL: Wasting of muscles INVESTIGATIONS, reviewed in the clinical context: Potassium 3.1 creatinine 0.57 Previous testing Sodium 134 potassium 3.6 White count 4.2 hemoglobin 13.2 platelets 106 pro time 14.6 potassium 3.7 Bun 3 creatinine 0.6 Lactic acid 2.3 bilirubin 2.5 AST 127 ALT 38 albumin 2.6 Amylase 120 lipase 401 EKG tracing personally reviewed by me-normal sinus rhythm Chest x-ray film personally reviewed by me-hyperinflation with prominent pulmonary artery CT abdomen and pelvis-spoke also, peripheral nodular hepatic contour, hepatic steatosis,ascites Hepatitis A IgM antibody negative, hepatitis B surface antigen negative, hepatitis B core IgM antibody negative, hepatitis C IgG antibody reactive Assessment: -Large tense ascites in a patient with suspected alcoholic cirrhosis. Status post large volume paracentesis-3 L removed, POA -Alcoholic cirrhosis -Suspect secondary portal hypertension -Moderate protein calorie malnutrition with muscle wasting, decreased albumin -Alcoholic/nutritional myopathy -Acute COPD exacerbation in a current smoker, POA -Acute tracheobronchitis -Vitamin K deficiency from cirrhosis, causing prolonged pro time Disposition: Home Patient Condition at Discharge: Stable Plan - Discharge Summary Discharge Rx Participant: Yes New Discharge Prescriptions: New Spironolactone [Aldactone] 50 mg PO DAILY #30 tab Nicotine 21Mg/24Hr Patch [Habitrol] 1 patch TRANSDERM DAILY #14 patch Furosemide [Lasix] 40 mg PO DAILY #30 tab Thiamine [Vitamin B-1] 100 mg PO BID-W/MEALS #60 tab Continue Albuterol Sulfate [Proair Hfa] 2 puff INHALATION RT-QID PRN PRN Reason: Shortness Of Breath Or Wheezing Fluticasone/Salmeterol [Airduo Respiclick 113-14 Mcg] 1 puff INHALATION RT- DAILY Albuterol Nebulized [Ventolin Nebulized] 2.5 mg INHALATION RT-Q6H PRN PRN Reason: Shortness Of Breath Discontinued Ibuprofen [Motrin] 800 mg PO BID PRN PRN Reason: Pain Discharge Medication List Albuterol Sulfate [Proair Hfa] 2 puff INHALATION RT-QID PRN 06/20/14 [History] Albuterol Nebulized [Ventolin Nebulized] 2.5 mg INHALATION RT-Q6H PRN 12/28/19 [History] Fluticasone/Salmeterol [Airduo Respiclick 113-14 Mcg] 1 puff INHALATION RT-DAILY 12/28/19 [History] Furosemide [Lasix] 40 mg PO DAILY #30 tab 12/30/19 [Rx] Nicotine 21Mg/24Hr Patch [Habitrol] 1 patch TRANSDERM DAILY #14 patch 12/30/19 [Rx] Spironolactone [Aldactone] 50 mg PO DAILY #30 tab 12/30/19 [Rx] Thiamine [Vitamin B-1] 100 mg PO BID-W/MEALS #60 tab 12/30/19 [Rx] Follow up Appointment(s)/Referral(s): Mandeep Ernandez DO [Primary Care Provider] - 3 Days Lissa Vincent MD [STAFF PHYSICIAN] - 2 Weeks Patient Instructions/Handouts: Gallstones (DC), Ascites (DC) Discharge Disposition: HOME SELF-CARE
== END 2019-12-30 15:01 | disposition home or self-care (01) | DRG 433 ==
LOC: EC 07:41 → 4SSUR 09:55
PROVIDERS: ADMIT Hospitalist; ATTEND Hospitalist
PROC: 0W9G3ZX Drainage of Peritoneal Cavity, Percutaneous Approach, Diagnostic (ICD-10-PCS; principal; 2019-12-30)
DX: K70.31 Alcoholic cirrhosis of liver with ascites (principal); K76.6 Portal hypertension; D68.9 Coagulation defect, unspecified; E44.0 Moderate protein-calorie malnutrition; E87.1 Hypo-osmolality and hyponatremia; F10.239 Alcohol dependence with withdrawal, unspecified; J44.0 Chronic obstructive pulmonary disease with (acute) lower respiratory infection; J44.1 Chronic obstructive pulmonary disease with (acute) exacerbation; G72.1 Alcoholic myopathy; D69.59 Other secondary thrombocytopenia; E56.1 Deficiency of vitamin K; Z71.6 Tobacco abuse counseling; F17.210 Nicotine dependence, cigarettes, uncomplicated; J20.9 Acute bronchitis, unspecified; K80.20 Calculus of gallbladder without cholecystitis without obstruction; Z79.899 Other long term (current) drug therapy; Z86.61 Personal history of infections of the central nervous system; Z98.42 Cataract extraction status, left eye; Z98.41 Cataract extraction status, right eye; Z87.01 Personal history of pneumonia (recurrent)
CPT/HCPCS: 36415; 49083; 71046; 74177; 80053; 80074; 81003; 82042; 82105; 82150; 83605; 83690; 84157; 84484; 85025; 85610; 85730; 87040; 87070; 87075; 87205; 87522; 89050; 93005; 94640; 94760; 96361; 96372; 96374; 96375; 99285

== ENCOUNTER 2020-01-08 08:02 | Observation (INO) | payer OTHER ==
[2020-01-08] MEDS ORDERED: SODIUM CHLORIDE 0.9% 500 ML 500 ML IV STA (08:26)
[2020-01-08] MEDS ORDERED: SODIUM CHLORIDE 0.9% 1,000 ML IV STA (08:26)
[2020-01-08] MEDS ORDERED: MORPHINE SULFATE 2 MG/ML SYRINGE IVP STA (08:26)
[2020-01-08] MEDS ORDERED: PANTOPRAZOLE 40 MG/10 ML VIAL IVP STA (08:26)
--- NOTE | 2020-01-08 08:30 | ED ---
Abdominal Pain HPI <Ron Taylor - Last Filed: 01/08/20 10:30> - General Source: patient, RN notes reviewed, old records reviewed Mode of arrival: ambulatory Limitations: no limitations <La Nena Alvarenga - Last Filed: 01/08/20 10:38> - General Chief Complaint: Abdominal Pain Stated Complaint: bloating Time Seen by Provider: 01/08/20 08:12 - History of Present Illness Initial Comments: Igor is a 5-year-old male who presents the emergency department today for evaluation for abdominal distention and bloating. Patient was admitted proximally 2 weeks ago for similar complaints and 5 L of fluid removed from his abdomen. He also had positive hep C. History of alcoholism. He states he has not drank since being discharged from the hospital. He is a smoker reports chronic cough. Patient reports that the fluid returned and his abdomen 3 days after being discharged. Patient states he is uncomfortable and having a difficult time with breathing due to the pressure in his abdomen. He states is also had very hard bowel movements. Patient does report he has been somewhat noncompliant with his medication such as Aldactone and sees had some burning with urination. He reports waking up with chills and subjective fevers throughout the nighttime. (La Nena Alvarenga) - Related Data Home Medications Medication Instructions Recorded Confirmed Albuterol Sulfate [Proair Hfa] 2 puff INHALATION RT-QID PRN 06/20/14 01/08/20 Albuterol Nebulized [Ventolin 2.5 mg INHALATION RT-Q6H PRN 12/28/19 01/08/20 Nebulized] Fluticasone/Salmeterol [Airduo 1 puff INHALATION RT-DAILY 12/28/19 01/08/20 Respiclick 113-14 Mcg] Previous Rx's Medication Instructions Recorded Furosemide [Lasix] 40 mg PO DAILY #30 tab 12/30/19 Nicotine 21Mg/24Hr Patch [Habitrol] 1 patch TRANSDERM DAILY #14 patch 12/30/19 Spironolactone [Aldactone] 50 mg PO DAILY #30 tab 12/30/19 Thiamine [Vitamin B-1] 100 mg PO BID-W/MEALS #60 tab 12/30/19 Allergies Allergy/AdvReac Type Severity Reaction Status Date / Time propoxyphene HCl AdvReac Nausea & Verified 01/08/20 10:24 [From Darvon] Vomiting propoxyphene napsylate AdvReac Nausea & Verified 01/08/20 10:24 [From Darvocet-N] Vomiting Review of Systems ROS Other: All systems not noted in ROS Statement are negative. <Ron Taylor - Last Filed: 01/08/20 10:30> ROS Other: All systems not noted in ROS Statement are negative. <ColetteLa Nena - Last Filed: 01/08/20 10:38> ROS Statement: Those systems with pertinent positive or pertinent negative responses have been documented in the HPI. Past Medical History Past Medical History: COPD, Pneumonia Additional Past Medical History / Comment(s): CHUNG CATARACTS, HX OF MENINGITIS CHILD, states is legally blind History of Any Multi-Drug Resistant Organisms: MRSA Date of last positivie culture/infection: L leg MDRO Source:: 2014 Past Surgical History: No Surgical Hx Reported Past Anesthesia/Blood Transfusion Reactions: No Reported Reaction Past Psychological History: No Psychological Hx Reported Smoking Status: Current every day smoker Past Alcohol Use History: Daily, Heavy Past Drug Use History: None Reported - Past Family History Father Family Medical History: Cancer Mother Family Medical History: Cancer, Dementia <Vilma Alvarengaily - Last Filed: 01/08/20 10:38> General Exam Limitations: no limitations General appearance: alert, in no apparent distress Head exam: Present: atraumatic, normocephalic, normal inspection Eye exam: Present: normal appearance, PERRL, EOMI. Absent: scleral icterus, conjunctival injection, periorbital swelling ENT exam: Present: normal exam, mucous membranes moist Neck exam: Present: normal inspection. Absent: tenderness, meningismus, lymphadenopathy Respiratory exam: Present: normal lung sounds bilaterally, wheezes (wheezing bilaterally, hx smoerk). Absent: respiratory distress, rales, rhonchi, stridor Cardiovascular Exam: Present: regular rate, normal rhythm, normal heart sounds. Absent: systolic murmur, diastolic murmur, rubs, gallop, clicks GI/Abdominal exam: Present: soft, tenderness (Patient has protuberant abdomen, ascites ), normal bowel sounds. Absent: distended, guarding, rebound, rigid Extremities exam: Present: normal inspection, full ROM, normal capillary refill. Absent: tenderness, pedal edema, joint swelling, calf tenderness Back exam: Present: normal inspection Neurological exam: Present: alert, oriented X3, CN II-XII intact Psychiatric exam: Present: normal affect, normal mood Skin exam: Present: warm, dry, intact, normal color. Absent: rash <ColetteLa Nena - Last Filed: 01/08/20 10:38> - General Exam Comments Initial Comments: 59-year-old male. Thin. Generally weak. (La Nena Alvarenga) Course <Ron Taylor - Last Filed: 01/08/20 10:30> Vital Signs 01/08/20 01/08/20 08:04 09:09 Temperature 97.1 F L Pulse Rate 103 H 89 Respiratory 20 18 Rate Blood Pressure 118/72 O2 Sat by Pulse 95 96 Oximetry - Reevaluation(s) Reevaluation #1: 01/08/20 10:30 PA supervision: I proceeded [id number] evaluation the patient the patient will be admitted he does have ascites he is demonstrating failure to thrive. I did discuss case with Dr. Hodge. Patient will be admitted for evaluation by GI and interventional radiology for paracentesis. (Ron Taylor) Medical Decision Making - Lab Data Result diagrams: 01/08/20 08:42 01/08/20 08:42 <Ron Taylor - Last Filed: 01/08/20 10:30> - Lab Data Result diagrams: 01/08/20 08:42 01/08/20 08:42 <La Nena Alvarenga - Last Filed: 01/08/20 10:38> - Medical Decision Making 5-year-old male presents emergency Department today for recurrent ascites. History of alcohol abuse in remission, he states he's been sober since discharge possible. He states that after being discharged and the swelling in his abdomen returned after 2-3 days. When his previously admitted he had approximately 2 L of fluid drained. At this time patient's labs are reviewed.Sodium of 1:30, potassium of 3.2. Bilirubin is stable at 2.3. He also complained of some bur cinthia with urination however urine sample appears negative for infection. Discussed the case with Dr. Taylor this time who discussed the case with Dr. nelson. We will admit the Patient with consult to GI and interventional radiology for a scheduled paracentesis. Discussed with Patient that he likely will need to have this scheduled on outpatient basis for this will recur again. (La Nena Alvarenga) - Lab Data Lab Results 01/08/20 01/08/20 01/08/20 Range/Units 08:42 08:42 08:42 WBC 4.1 (3.8-10.6) k/uL RBC 3.69 L (4.30-5.90) m/uL Hgb 13.7 (13.0-17.5) gm/dL Hct 40.2 (39.0-53.0) % MCV 109.0 H (80.0-100.0) fL MCH 37.1 H (25.0-35.0) pg MCHC 34.1 (31.0-37.0) g/dL RDW 14.8 (11.5-15.5) % Plt Count 101 L (150-450) k/uL Neutrophils % (Manual) 51 % Lymphocytes % (Manual) 33 % Monocytes % (Manual) 12 % Eosinophils % (Manual) 4 % Neutrophils # (Manual) 2.09 (1.3-7.7) k/uL Lymphocytes # (Manual) 1.35 (1.0-4.8) k/uL Monocytes # (Manual) 0.49 (0-1.0) k/uL Eosinophils # (Manual) 0.16 (0-0.7) k/uL Nucleated RBCs 0 (0-0) /100 WBC Manual Slide Review Performed Anisocytosis (manual) Present Macrocytosis Marked A Target Cells Present PT 14.5 H (9.0-12.0) sec INR 1.5 H (<1.2) APTT 28.8 (22.0-30.0) sec Sodium (137-145) mmol/L Potassium (3.5-5.1) mmol/L Chloride (98-107) mmol/L Carbon Dioxide (22-30) mmol/L Anion Gap mmol/L BUN (9-20) mg/dL Creatinine (0.66-1.25) mg/dL Est GFR (CKD-EPI)AfAm (>60 ml/min/1.73 sqM) Est GFR (CKD-EPI)NonAf (>60 ml/min/1.73 sqM) Glucose (74-99) mg/dL Calcium (8.4-10.2) mg/dL Magnesium (1.6-2.3) mg/dL Total Bilirubin (0.2-1.3) mg/dL AST (17-59) U/L ALT (4-49) U/L Alkaline Phosphatase (38-126) U/L Total Protein (6.3-8.2) g/dL Albumin (3.5-5.0) g/dL Amylase (30-110) U/L Lipase (23-300) U/L Urine Color Yellow Urine Appearance Clear (Clear) Urine pH 6.0 (5.0-8.0) Ur Specific [place] 1.016 (1.001-1.035) Urine Protein Negative (Negative) Urine Glucose (UA) Negative (Negative) Urine Ketones Negative (Negative) Urine Blood Negative (Negative) Urine Nitrite Negative (Negative) Urine Bilirubin 1+ H (Negative) Urine Urobilinogen 6.0 (<2.0) mg/dL Ur Leukocyte Esterase Negative (Negative) 01/08/20 01/08/20 Range/Units 08:42 08:42 WBC (3.8-10.6) k/uL RBC (4.30-5.90) m/uL Hgb (13.0-17.5) gm/dL Hct (39.0-53.0) % MCV (80.0-100.0) fL MCH (25.0-35.0) pg MCHC (31.0-37.0) g/dL RDW (11.5-15.5) % Plt Count (150-450) k/uL Neutrophils % (Manual) % Lymphocytes % (Manual) % Monocytes % (Manual) % Eosinophils % (Manual) % Neutrophils # (Manual) (1.3-7.7) k/uL Lymphocytes # (Manual) (1.0-4.8) k/uL Monocytes # (Manual) (0-1.0) k/uL Eosinophils # (Manual) (0-0.7) k/uL Nucleated RBCs (0-0) /100 WBC Manual Slide Review Anisocytosis (manual) Macrocytosis Target Cells PT (9.0-12.0) sec INR (<1.2) APTT (22.0-30.0) sec Sodium 130 L (137-145) mmol/L Potassium 3.2 L (3.5-5.1) mmol/L Chloride 97 L (98-107) mmol/L Carbon Dioxide 22 (22-30) mmol/L Anion Gap 11 mmol/L BUN 5 L (9-20) mg/dL Creatinine 0.60 L (0.66-1.25) mg/dL Est GFR (CKD-EPI)AfAm >90 (>60 ml/min/1.73 sqM) Est GFR (CKD-EPI)NonAf >90 (>60 ml/min/1.73 sqM) Glucose 164 H (74-99) mg/dL Calcium 7.6 L (8.4-10.2) mg/dL Magnesium 1.7 (1.6-2.3) mg/dL Total Bilirubin 2.3 H (0.2-1.3) mg/dL AST 100 H (17-59) U/L ALT 34 (4-49) U/L Alkaline Phosphatase 117 (38-126) U/L Total Protein 8.4 H (6.3-8.2) g/dL Albumin 2.6 L (3.5-5.0) g/dL Amylase 110 (30-110) U/L Lipase 313 H (23-300) U/L Urine Color Urine Appearance (Clear) Urine pH (5.0-8.0) Ur Specific [place] (1.001-1.035) Urine Protein (Negative) Urine Glucose (UA) (Negative) Urine Ketones (Negative) Urine Blood (Negative) Urine Nitrite (Negative) Urine Bilirubin (Negative) Urine Urobilinogen (<2.0) mg/dL Ur Leukocyte Esterase (Negative) Disposition <Ron Taylor - Last Filed: 01/08/20 10:30> Is patient prescribed a controlled substance at d/c from ED?: No Time of Disposition: 10:38 <La Nena Alvarenga - Last Filed: 01/08/20 10:38> Clinical Impression: Ascites Disposition: ADMITTED IP TO THIS HOSP Condition: Stable Referrals: Mandeep Ernandez DO [Primary Care Provider] - 1-2 days
[2020-01-08 09:02] LABS: Appearance,Urine Clear (Clear); Bilirubin,Urine 1+ (Negative); Blood,Urine Negative (Negative); Color,Urine Yellow; Glucose,Urine (UA) Negative (Negative); Ketones,Urine Negative (Negative); Leukocyte Esterase,Urine Negative (Negative); Nitrite,Urine Negative (Negative); Protein,Urine Negative (Negative); Specific Gravity,Urine 1.016 (1.001-1.035)
[2020-01-08 09:09] LABS: ALT 34 U/L (4-49); AST 100 U/L (17-59); African American GFR (CKD) >90 (>60 ml/min/1.73 sqM); Albumin 2.6 g/dL (3.5-5.0); Alkaline Phosphatase 117 U/L (38-126); Amylase 110 U/L (30-110); Anion Gap 11 mmol/L; Blood Urea Nitrogen 5 mg/dL (9-20); Calcium 7.6 mg/dL (8.4-10.2); Carbon Dioxide 22 mmol/L (22-30); Chloride 97 mmol/L (98-107); Glucose 164 mg/dL (74-99); Non-African American GFR(CKD) >90 (>60 ml/min/1.73 sqM); Potassium 3.2 mmol/L (3.5-5.1); Sodium 130 mmol/L (137-145); Total Bilirubin 2.3 mg/dL (0.2-1.3); Total Protein 8.4 g/dL (6.3-8.2)
[2020-01-08 09:18] LABS: HCT 40.2 % (39.0-53.0); HGB 13.7 gm/dL (13.0-17.5); MCH 37.1 pg (25.0-35.0); MCHC 34.1 g/dL (31.0-37.0); Macrocytosis Marked; Mean Platelet Volume 7.9; Platelet Count 101 k/uL (150-450); RBC 3.69 m/uL (4.30-5.90); RDW 14.8 % (11.5-15.5); WBC 4.1 k/uL (3.8-10.6)
[2020-01-08 09:19] LABS: INR 1.5 (<1.2); Partial Thromboplastin Time 28.8 sec (22.0-30.0); Prothrombin Time 14.5 sec (9.0-12.0)
[2020-01-08 09:57] LABS: Anisocytosis (M) Present; Eosinophils # (M) 0.16 k/uL (0-0.7); Lymphocytes # (M) 1.35 k/uL (1.0-4.8); Monocytes # (M) 0.49 k/uL (0-1.0); Neutrophils # (M) 2.09 k/uL (1.3-7.7); Neutrophils % (M) 51 %; Nucleated Red Blood Cells 0 /100 WBC (0-0); Target Cells Present; Total Cells Counted 100
[2020-01-08] MEDS ORDERED: HYDROmorphone 0.5 MG/0.5 ML SYRINGE IVP PRN (10:39)
[2020-01-08] MEDS ORDERED: MORPHINE SULFATE 4 MG/ML SYRINGE IV PRN (10:39)
[2020-01-08] MEDS ORDERED: ACETAMINOPHEN TAB 325 MG TAB PO PRN (10:39)
[2020-01-08] MEDS ORDERED: NALOXONE 0.4 MG/ML 1 ML VIAL IV PRN (10:39)
[2020-01-08] MEDS: SODIUM CHLORIDE 0.9% 1,000 ML IV SCH ×2 (11:45→22:02)
[2020-01-08] MEDS: FUROSEMIDE 40 MG TAB PO SCH (12:10)
[2020-01-08] MEDS: SPIRONOLACTONE 25 MG TAB PO SCH (12:10)
--- NOTE | 2020-01-08 15:40 | US ---
EXAMINATION TYPE: US paracentesis abd w/image DATE OF EXAM: 01/08/2020 CLINICAL HISTORY: Ascites The procedure was discussed with the patient. The risks, complications, benefits, and alternatives we re discussed and any questions were answered. Informed consent was obtained. The patient was placed s upine on the ultrasound table and prepped and draped in the usual sterile fashion. All elements of maximal barrier technique were utilized. Under ultrasound guidance, access into the right lower quadrant was obtained, via the paracentesis catheter system and direct ultrasound guidanc e. Approximately 1.25 liters of straw-colored fluid was removed. The patient was stable throughout the p rocedure and remained stable upon discharge from Department of Radiology. IMPRESSION: Successful therapeutic paracentesis under ultrasound guidance.
[2020-01-08] MEDS ORDERED: ALBUTEROL NEBULIZED 2.5 MG/3 ML INHALATION PRN (20:24)
[2020-01-08] MEDS: IPRATROPIUM-ALBUTEROL 3 ML NEB INHALATION SCH ×2 (21:30→22:58)
[2020-01-08] MEDS: FORMOTEROL FUMARATE 20 MCG/2 ML NEBU INHALATION SCH (21:30)
[2020-01-08] MEDS: BUDESONIDE 1 MG/2 ML NEBU INHALATION SCH (21:30)
--- NOTE | 2020-01-08 21:30 | P.HPIM ---
History of Present Illness H&P Date: 01/08/20 Chief Complaint: Abdominal distention Chief Complaint: Abdominal distention History of presenting complaint: This is a pleasant [address] Mireles. Was in the hospital about 3 weeks ago. Diagnosed with tense ascites from alcoholic cirrhosis. Had been drinking up to them. Patient had paracentesis done. Patient is now stopped drinking alcohol. Has stopped up again tense ascites and presented for the same. Also short of breath and wheezing. Has not stopped smoking. Wheezing and coughing. No fever no chills. Today had 1.25 L of straw-colored fluid was removed. Some relief. No edema. Appetite is okay. Review of systems: GEN.: Tired EYES: None HEENT: None NECK: None RESPIRATORY: As above CARDIOVASCULAR: None GASTROINTESTINAL: As above GENITOURINARY: None MUSCULOSKELETAL: Muscle wasting LYMPHATICS: None HEMATOLOGICAL: None PSYCHIATRY: None NEUROLOGICAL: None Past medical history to include: Alcoholic cirrhosis, secondary portal hypertension, protein calorie malnutrition, alcoholic myopathy, COPD, vitamin K deficiency Social history: Was drinking up to 4 beers a day for large cans he sees about 24 hours, stopped about 3 weeks ago. smokes a pack a day, lives alone. On disability Family history: Reviewed, noncontributory to presentation Physical examination: VITAL SIGNS: 97.1, 103, 20, 1180 72, 95% on room air GENERAL: BMI 18.5, laying in bed, spider nevi on the chest wall. EYES: Pupils equal. Conjunctiva normal. HEENT: External appearance of nose and ears normal, oral cavity grossly normal. NECK: JVD not raised; masses not palpable. HEART: First and second heart sounds are normal; no edema. LUNGS: Respiratory rate increased; diminished breath sounds prolonged expiration, wheezing. ABDOMEN: Soft, less distended, no tenderness no guarding or rigidity liver spleen not palpable, no masses palpable. Dullness to percussion at the flank PSYCH: Alert and oriented x3; mood and affect MUSCULOSKELETAL: Wasting of muscles NEUROLOGICAL: Cranial nerves grossly intact; no facial asymmetry, power and sensation grossly intact. LYMPHATICS: No lymph nodes palpable in the axilla and neck INVESTIGATIONS, reviewed in the clinical context: White count 4.1 hemoglobin 10.7 pro time 14.5 potassium 3.2 sodium 1:30 creatinine 0.60 Total bilirubin 2.3 calcium 7.[address] abdomen and pelvis-spoke also, peripheral nodular hepatic contour, hepatic steatosis,ascites Assessment: -Large tense ascites in a patient with alcoholic cirrhosis. 1.5 L paracentesis- removed, POA -Alcoholic cirrhosis -Suspect secondary portal hypertension -Moderate protein calorie malnutrition with muscle wasting, decreased albumin -Alcoholic/nutritional myopathy -Acute severe COPD exacerbation in a current smoker, POA -Hyperbilirubinemia -Vitamin K deficiency from cirrhosis, causing prolonged pro time Plan: Patient is status post paracentesis. Also start the patient on nebulized bronchodilators every 4 hours, nebulized long-acting beta agonist and inhaled steroids. Expect the patient to stay the hospital for at least 2 nights. Nicotine patch being added. Fluid restriction. Low-salt diet. Past Medical History Past Medical History: COPD, Pneumonia Additional Past Medical History / Comment(s): CHUNG CATARACTS, HX OF MENINGITIS CHILD, states is legally blind History of Any Multi-Drug Resistant Organisms: MRSA Date of last positivie culture/infection: L leg MDRO Source:: 2014 Past Surgical History: No Surgical Hx Reported Additional Past Surgical History / Comment(s): pancreatitis and paracentesis Past Anesthesia/Blood Transfusion Reactions: No Reported Reaction Past Psychological History: No Psychological Hx Reported Smoking Status: Current every day smoker Past Alcohol Use History: Daily, Heavy Past Drug Use History: None Reported - Past Family History Father Family Medical History: Cancer Mother Family Medical History: Cancer, Dementia Medications and Allergies Home Medications Medication Instructions Recorded Confirmed Type Albuterol Sulfate [Proair Hfa] 2 puff INHALATION RT-QID PRN 06/20/14 01/08/20 History Albuterol Nebulized [Ventolin 2.5 mg INHALATION RT-Q6H PRN 12/28/19 01/08/20 History Nebulized] Fluticasone/Salmeterol [Airduo 1 puff INHALATION RT-DAILY 12/28/19 01/08/20 History Respiclick 113-14 Mcg] Furosemide [Lasix] 40 mg PO DAILY #30 tab 12/30/19 01/08/20 Rx Nicotine 21Mg/24Hr Patch [Habitrol] 1 patch TRANSDERM DAILY #14 patch 12/30/19 01/08/20 Rx Spironolactone [Aldactone] 50 mg PO DAILY #30 tab 12/30/19 01/08/20 Rx Thiamine [Vitamin B-1] 100 mg PO BID-W/MEALS #60 tab 12/30/19 01/08/20 Rx Allergies Allergy/AdvReac Type Severity Reaction Status Date / Time propoxyphene HCl AdvReac Nausea & Verified 01/08/20 10:24 [From Darvon] Vomiting propoxyphene napsylate AdvReac Nausea & Verified 01/08/20 10:24 [From Darvocet-N] Vomiting Physical Exam Vitals: Vital Signs Temp Pulse Pulse Pulse Resp BP BP 01/08/20 15:10 82 14 01/08/20 14:57 86 16 01/08/20 14:50 85 14 01/08/20 14:40 85 16 01/08/20 14:30 90 14 01/08/20 14:25 98.4 F 86 16 01/08/20 14:24 97.9 F 81 14 01/08/20 14:22 97.7 F 86 14 01/08/20 11:35 97.5 F L 85 16 114/77 01/08/20 11:17 98.1 F 88 18 99/61 01/08/20 10:00 88 18 119/69 01/08/20 09:09 89 18 01/08/20 08:04 97.1 F L 103 H 20 118/72 BP Pulse Ox 01/08/20 15:10 113/72 92 L 01/08/20 14:57 104/69 92 L 01/08/20 14:50 106/69 92 L 01/08/20 14:40 105/70 92 L 01/08/20 14:30 104/73 90 L 01/08/20 14:25 117/78 92 L 01/08/20 14:24 134/60 93 L 01/08/20 14:22 107/75 92 L 01/08/20 11:35 92 L 01/08/20 11:17 97 01/08/20 10:00 96 01/08/20 09:09 96 01/08/20 08:04 95 Intake and Output 01/08/20 01/08/20 01/08/20 06:59 14:59 22:59 Other: Voiding Method Toilet # Voids 1 Weight 53.524 kg Results CBC & Chem 7: 01/08/20 08:42 01/08/20 08:42 Labs: Abnormal Lab Results - Last 24 Hours (Table) 01/08/20 01/08/20 01/08/20 Range/Units 08:42 08:42 08:42 RBC 3.69 L (4.30-5.90) m/uL MCV 109.0 H (80.0-100.0) fL MCH 37.1 H (25.0-35.0) pg Plt Count 101 L (150-450) k/uL Macrocytosis Marked A PT 14.5 H (9.0-12.0) sec INR 1.5 H (<1.2) Sodium (137-145) mmol/L Potassium (3.5-5.1) mmol/L Chloride (98-107) mmol/L BUN (9-20) mg/dL Creatinine (0.66-1.25) mg/dL Glucose (74-99) mg/dL Calcium (8.4-10.2) mg/dL Total Bilirubin (0.2-1.3) mg/dL AST (17-59) U/L Total Protein (6.3-8.2) g/dL Albumin (3.5-5.0) g/dL Lipase (23-300) U/L Urine Bilirubin 1+ H (Negative) 01/08/20 Range/Units 08:42 RBC (4.30-5.90) m/uL MCV (80.0-100.0) fL MCH (25.0-35.0) pg Plt Count (150-450) k/uL Macrocytosis PT (9.0-12.0) sec INR (<1.2) Sodium 130 L (137-145) mmol/L Potassium 3.2 L (3.5-5.1) mmol/L Chloride 97 L (98-107) mmol/L BUN 5 L (9-20) mg/dL Creatinine 0.60 L (0.66-1.25) mg/dL Glucose 164 H (74-99) mg/dL Calcium 7.6 L (8.4-10.2) mg/dL Total Bilirubin 2.3 H (0.2-1.3) mg/dL AST 100 H (17-59) U/L Total Protein 8.4 H (6.3-8.2) g/dL Albumin 2.6 L (3.5-5.0) g/dL Lipase 313 H (23-300) U/L Urine Bilirubin (Negative) Thrombosis Risk Factor Assmnt - Choose All That Apply Each Factor Represents 1 point: Age 41-60 years Thrombosis Risk Factor Assessment Total Risk Factor Score: 1 Thrombosis Risk Factor Assessment Level: Low Risk
--- NOTE | 2020-01-08 21:54 | P.CONS ---
History of Present Illness - Reason for Consult Consult date: 01/08/20 Decompensated EtOH Cirrhosis Requesting physician: Isaac Hodge - Chief Complaint Shortness of breath, abdominal distention - History of Present Illness 59-year-old male who presented to the hospital with complaints of shortness of breath and abdominal distention, he has a medical history significant for alcohol abuse for which she reports abstinence over the past few weeks with a new diagnosis of decompensated alcoholic cirrhosis on prior admission. Patient was hospitalized approximately 3 weeks ago at which time he had reported a long- standing history of daily alcohol use. At that time the patient had paracentesis performed. The patient was discharged from the hospital on Aldactone and Lasix therapy for diuresis however after going home the patient stopped taking the medicines. He reported frequent urination with the medications and therefore discontinued their use. Patient was also found to be positive for hepatitis C virus at that time. He denies any further alcohol use since his discharge. On current presentation and the patient was found to have a WBC 4.1, hemoglobin 13.7, platelet count 101,000, total bilirubin 2.3, alkaline phosphatase 117, AST 100 and ALT 34. Review of Systems REVIEW OF SYSTEMS: CONSTITUTIONAL: Denies any fevers, chills, or fatigue. CARDIOVASCULAR: Denies any chest pain, palpitations high or low blood pressures RESPIRATORY: Denies any hemoptysis or cough but does report shortness of breath. GENITOURINARY: No dysuria or hematuria. MUSCULOSKELETAL: No weakness reported. SKIN: Denies any new rashes or lesions, jaundice or pallor. PSYCHIATRIC: Denies any depression or anxiety, known history of alcohol abuse. NEUROLOGY: Denies headache, denies any new focal deficits. EARS/NOSE/THROAT: No recent hearing change, congestion, nasal discharge or sore throat. EYES: No pain in eyes, discharge or change in vision. GASTROINTESTINAL: As per HPI. Past Medical History Past Medical History: COPD, Pneumonia Additional Past Medical History / Comment(s): CHUNG CATARACTS, HX OF MENINGITIS CHILD, states is legally blind History of Any Multi-Drug Resistant Organisms: MRSA Year Discovered:: Natasha cast MDRO Source:: 2014 Past Surgical History: No Surgical Hx Reported Additional Past Surgical History / Comment(s): pancreatitis and paracentesis Past Anesthesia/Blood Transfusion Reactions: No Reported Reaction Past Psychological History: No Psychological Hx Reported Smoking Status: Current every day smoker Past Alcohol Use History: Daily, Heavy Past Drug Use History: None Reported - Past Family History Father Family Medical History: Cancer Mother Family Medical History: Cancer, Dementia Medications and Allergies Home Medications Medication Instructions Recorded Confirmed Type Albuterol Sulfate [Proair Hfa] 2 puff INHALATION RT-QID PRN 06/20/14 01/08/20 History Albuterol Nebulized [Ventolin 2.5 mg INHALATION RT-Q6H PRN 12/28/19 01/08/20 History Nebulized] Fluticasone/Salmeterol [Airduo 1 puff INHALATION RT-DAILY 12/28/19 01/08/20 History Respiclick 113-14 Mcg] Furosemide [Lasix] 40 mg PO DAILY #30 tab 12/30/19 01/08/20 Rx Nicotine 21Mg/24Hr Patch [Habitrol] 1 patch TRANSDERM DAILY #14 patch 12/30/19 01/08/20 Rx Spironolactone [Aldactone] 50 mg PO DAILY #30 tab 12/30/19 01/08/20 Rx Thiamine [Vitamin B-1] 100 mg PO BID-W/MEALS #60 tab 12/30/19 01/08/20 Rx Allergies Allergy/AdvReac Type Severity Reaction Status Date / Time propoxyphene HCl AdvReac Nausea & Verified 01/08/20 10:24 [From Darvon] Vomiting propoxyphene napsylate AdvReac Nausea & Verified 01/08/20 10:24 [From Darvocet-N] Vomiting Physical Exam Vitals: Vital Signs Temp Pulse Pulse Resp BP BP Pulse Ox 01/08/20 11:35 97.5 F L 85 16 114/77 92 L 01/08/20 11:17 98.1 F 88 18 99/61 97 01/08/20 10:00 88 18 119/69 96 01/08/20 09:09 89 18 96 01/08/20 08:04 97.1 F L 103 H 20 118/72 95 Intake and Output 01/07/20 01/08/20 01/08/20 22:59 06:59 14:59 Other: # Voids 1 Weight 53.524 kg On physical examination, patient appears comfortable in no apparent distress. HEAD: Normocephalic, atraumatic. EYES: No scleral icterus. No conjunctival injection. MOUTH: No lesions, tongue midline. NECK: Trachea midline, no gross abnormalities. CHEST: Clear to auscultation with no wheezing or rhonchi appreciated. HEART: Regular rate and rhythm. ABDOMEN: Soft, mildly distended. Bowel sounds are positive. No organomegaly. No guarding or rigidity. EXTREMITIES: No pedal edema. SKIN: No rashes, no jaundice. NEUROLOGIC: Alert and oriented x3. No focal deficits. Results CBC & Chem 7: 01/08/20 08:42 01/08/20 08:42 Labs: Abnormal Lab Results - Last 24 Hours (Table) 01/08/20 01/08/20 01/08/20 Range/Units 08:42 08:42 08:42 RBC 3.69 L (4.30-5.90) m/uL MCV 109.0 H (80.0-100.0) fL MCH 37.1 H (25.0-35.0) pg Plt Count 101 L (150-450) k/uL Macrocytosis Marked A PT 14.5 H (9.0-12.0) sec INR 1.5 H (<1.2) Sodium (137-145) mmol/L Potassium (3.5-5.1) mmol/L Chloride (98-107) mmol/L BUN (9-20) mg/dL Creatinine (0.66-1.25) mg/dL Glucose (74-99) mg/dL Calcium (8.4-10.2) mg/dL Total Bilirubin (0.2-1.3) mg/dL AST (17-59) U/L Total Protein (6.3-8.2) g/dL Albumin (3.5-5.0) g/dL Lipase (23-300) U/L Urine Bilirubin 1+ H (Negative) 01/08/20 Range/Units 08:42 RBC (4.30-5.90) m/uL MCV (80.0-100.0) fL MCH (25.0-35.0) pg Plt Count (150-450) k/uL Macrocytosis PT (9.0-12.0) sec INR (<1.2) Sodium 130 L (137-145) mmol/L Potassium 3.2 L (3.5-5.1) mmol/L Chloride 97 L (98-107) mmol/L BUN 5 L (9-20) mg/dL Creatinine 0.60 L (0.66-1.25) mg/dL Glucose 164 H (74-99) mg/dL Calcium 7.6 L (8.4-10.2) mg/dL Total Bilirubin 2.3 H (0.2-1.3) mg/dL AST 100 H (17-59) U/L Total Protein 8.4 H (6.3-8.2) g/dL Albumin 2.6 L (3.5-5.0) g/dL Lipase 313 H (23-300) U/L Urine Bilirubin (Negative) US - abdomen: report reviewed (Ultrasound paracentesis with 1.25 L removed) Assessment and Plan (1) Decompensation of cirrhosis of liver Narrative/Plan: 59-year-old male with a medical history significant for hepatitis C treatment cyndy, decompensated alcoholic cirrhosis, ascites with prior history of EtOH abuse for which she has been abstinent over the past few weeks. Patient recently diagnosed on admission to the hospital with decompensated cirrhosis at that time he received a paracentesis and was given diuretic therapy. However after being discharged home the patient was brought by with the medicine and presented back with increasing abdominal distention and associated shortness of breath. Denies any signs or symptoms of GI bleeding. No fevers, chills or other signs of infection at this time. Patient underwent ultrasound paracentesis today with 1.25 L of a site easily removed. Current Visit: Yes Status: Acute Code(s): K72.90 - HEPATIC FAILURE, UNSPECIFIED WITHOUT COMA SNOMED Code(s): 249192421 (2) Hepatitis C Current Visit: Yes Status: Acute Code(s): B19.20 - UNSPECIFIED VIRAL HEPATITIS C WITHOUT HEPATIC COMA SNOMED Code(s): 07949223 (3) Ascites Current Visit: Yes Status: Acute Code(s): R18.8 - OTHER ASCITES SNOMED Code(s): 465794174 Plan: Supportive care Okay for sodium restricted diet Lasix 40 mg daily initiated Aldactone 50 mg daily initiated Extensive conversation with the patient regarding compliance with medications and low-sodium diet Continue alcohol abstinence Follow-up outpatient for continued treatment of decompensated cirrhosis as well as hepatitis C Thank you for allowing us to participate in the care of the patient we will continue to follow
[2020-01-08] MEDS: NICOTINE 21MG/24HR PATCH TRANSDERM SCH (21:58)
[2020-01-08] MEDS: THIAMINE 100 MG TAB PO SCH (21:58)
[2020-01-09] MEDS ORDERED: IPRATROPIUM-ALBUTEROL 3 ML NEB INHALATION SCH
[2020-01-09] MEDS: IPRATROPIUM-ALBUTEROL 3 ML NEB INHALATION SCH ×6 (02:47→23:11)
[2020-01-09] MEDS: FORMOTEROL FUMARATE 20 MCG/2 ML NEBU INHALATION SCH ×2 (07:25→19:04)
[2020-01-09] MEDS: BUDESONIDE 1 MG/2 ML NEBU INHALATION SCH ×2 (07:25→19:04)
[2020-01-09] MEDS ORDERED: SYMBICORT 160-4.5 MCG INHALER INHALATION SCH (08:00)
[2020-01-09] MEDS: SPIRONOLACTONE 25 MG TAB PO SCH (08:46)
[2020-01-09] MEDS: FUROSEMIDE 40 MG TAB PO SCH (08:46)
[2020-01-09] MEDS: NICOTINE 21MG/24HR PATCH TRANSDERM SCH (08:47)
[2020-01-09] MEDS: THIAMINE 100 MG TAB PO SCH ×2 (08:47→17:16)
[2020-01-09] MEDS: ONDANSETRON 4 MG/2 ML VIAL IVP PRN (08:50)
[2020-01-09 08:51] LABS: INR 1.6 (<1.2); Prothrombin Time 15.7 sec (9.0-12.0)
[2020-01-09] MEDS ORDERED: PANTOPRAZOLE 40 MG/10 ML VIAL IV SCH (09:00)
[2020-01-09 09:06] LABS: ALT 29 U/L (4-49); AST 81 U/L (17-59); African American GFR (CKD) >90 (>60 ml/min/1.73 sqM); Albumin 2.2 g/dL (3.5-5.0); Alkaline Phosphatase 90 U/L (38-126); Anion Gap 7 mmol/L; Blood Urea Nitrogen 6 mg/dL (9-20); Calcium 7.4 mg/dL (8.4-10.2); Carbon Dioxide 28 mmol/L (22-30); Chloride 98 mmol/L (98-107); Glucose 151 mg/dL (74-99); Non-African American GFR(CKD) >90 (>60 ml/min/1.73 sqM); Sodium 133 mmol/L (137-145); Total Bilirubin 2.2 mg/dL (0.2-1.3); Total Protein 7.4 g/dL (6.3-8.2)
[2020-01-09 09:10] LABS: Potassium 2.7 mmol/L (3.5-5.1)
[2020-01-09] MEDS: MIDODRINE 5 MG TAB PO SCH ×2 (09:29→17:16)
[2020-01-09] MEDS: POTASSIUM CHLORIDE ER 20 MEQ TAB.ER PO SCH ×4 (09:55→16:07)
[2020-01-09 10:39] VITALS: BMI 18.4
--- NOTE | 2020-01-09 20:29 | P.PN ---
Progress Note - Text Progress Note Date: 01/09/20 Chief Complaint: Abdominal distention History of presenting complaint: This is a pleasant [address] Mireles. Was in the hospital about 3 weeks ago. Diagnosed with tense ascites from alcoholic cirrhosis. Had been drinking up to then. Patient had paracentesis done. Patient is now stopped drinking alcohol. again tense ascites and presented for the same. Also short of breath and wheezing. Has not stopped smoking. Wheezing and coughing. No fever no chills. 1.25 L of straw-colored fluid was removed. Some relief. No edema. Admitted with-tense ascites, COPD exacerbation Today-predicted short of breath cough tired. Did tolerate some diet. Laying in bed. Very low potassium this morning. Review of systems: Was done for constitutional, cardiovascular, GI, pulmonary. relevant finding as above Active Medications Acetaminophen (Tylenol Tab) 650 mg PO Q6HR PRN PRN Reason: Mild Pain or Fever > 100.5 Albuterol Sulfate (Ventolin Nebulized) 2.5 mg INHALATION RT-Q6H PRN PRN Reason: Shortness Of Breath Albuterol/Ipratropium (Duoneb 0.5 Mg-3 Mg/3 Ml Soln) 3 ml INHALATION RT-Q4H [facility] Last Admin: 01/09/20 19:04 Dose: Not Given Documented by: Budesonide (Pulmicort) 1 mg INHALATION RT-BID [facility] Last Admin: 01/09/20 19:04 Dose: Not Given Documented by: Formoterol Fumarate (Perforomist) 20 mcg INHALATION RT-BID [facility] Last Admin: 01/09/20 19:04 Dose: Not Given Documented by: Furosemide (Lasix) 40 mg PO DAILY [facility] Last Admin: 01/09/20 08:46 Dose: Not Given Documented by: Midodrine (Proamatine) 5 mg PO AC-BID [facility] Last Admin: 01/09/20 17:16 Dose: 5 mg Documented by: Naloxone HCl (Narcan) 0.2 mg IV Q2M PRN PRN Reason: Opioid Reversal Nicotine (Habitrol 21mg/24hr Patch) 1 patch TRANSDERM DAILY [facility] Last Admin: 01/09/20 08:47 Dose: 1 patch Documented by: Ondansetron HCl (Zofran) 4 mg IVP Q6HR PRN PRN Reason: Nausea And Vomiting Last Admin: 01/09/20 08:50 Dose: 4 mg Documented by: Spironolactone (Aldactone) 50 mg PO DAILY [facility] Last Admin: 01/09/20 08:46 Dose: Not Given Documented by: Thiamine HCl (Vitamin B-1) 100 mg PO BID-W/MEALS [facility] Last Admin: 01/09/20 17:16 Dose: Not Given Physical examination: VITAL SIGNS: 97.9, 87, 16, 90/57, 94% room air GENERAL: laying in bed, spider nevi on the chest wall., Tired EYES: Pupils equal. Conjunctiva normal. HEENT: External appearance of nose and ears normal, oral cavity grossly normal. NECK: JVD not raised; masses not palpable. HEART: First and second heart sounds are normal; no edema. LUNGS: Respiratory rate increased; diminished breath sounds prolonged expiration, wheezing. ABDOMEN: Soft, less distended, no tenderness no guarding or rigidity liver spleen not palpable, no masses palpable. PSYCH: Alert and oriented x3; mood and affect-tired MUSCULOSKELETAL: Wasting of muscles INVESTIGATIONS, reviewed in the clinical context: Potassium 2.[address] abdomen and pelvis-spoke also, peripheral nodular hepatic contour, hepatic steatosis,ascites White count 4.1 hemoglobin 10.7 pro time 14.5 potassium 3.2 sodium 1:30 creatinine 0.60 Total bilirubin 2.3 calcium 7.6 albumin 2.6 Assessment: -Large tense ascites in a patient with alcoholic cirrhosis. 1.5 L paracentesis- removed, POA -Severe hypokalemia -Alcoholic cirrhosis -Suspect secondary portal hypertension -Moderate protein calorie malnutrition with muscle wasting, decreased albumin -Alcoholic/nutritional myopathy -Acute severe COPD exacerbation in a current smoker, POA-slow to respond -Hyperbilirubinemia -Vitamin K deficiency from cirrhosis, causing prolonged pro time Plan: Replace potassium aggressively. Continue with bronchodilator and inhaled steroids. We will also add IV steroids.
--- NOTE | 2020-01-09 20:52 | P.PN ---
Subjective Progress Note Date: 01/09/20 Principal diagnosis: Decompensated alcoholic cirrhosis with ascites Patient seen lying in bed reporting he is doing well. Post to eat lunch today. No signs or symptoms of GI bleeding. Objective - Vital Signs Vital signs: Vital Signs Temp 98.0 F 01/09/20 13:38 Pulse 58 L 01/09/20 13:38 Resp 16 01/09/20 13:38 BP 100/63 01/09/20 13:38 Pulse Ox 96 01/09/20 13:38 Intake & Output 01/09/20 01/09/20 01/10/20 06:59 18:59 06:59 Output Total 1100 Balance -1100 Weight 53.524 kg Output: Urine 1100 Other: Voiding Method Toilet # Voids 2 2 # Emeses 1 - Exam On physical examination, patient appears comfortable in no apparent distress. HEAD: Normocephalic, atraumatic. EYES: No scleral icterus. No conjunctival injection. MOUTH: No lesions, tongue midline. NECK: Trachea midline, no gross abnormalities. ABDOMEN: Soft, less distended. Bowel sounds are positive. No organomegaly. No guarding or rigidity. EXTREMITIES: No pedal edema. SKIN: No rashes, no jaundice. NEUROLOGIC: Alert and oriented x3. No focal deficits. - Labs CBC & Chem 7: 01/08/20 08:42 01/09/20 18:10 Labs: Abnormal Lab Results - Last 24 Hours (Table) 01/09/20 01/09/20 Range/Units 08:12 08:15 PT 15.7 H (9.0-12.0) sec INR 1.6 H (<1.2) Sodium 133 L (137-145) mmol/L Potassium 2.7 L* (3.5-5.1) mmol/L BUN 6 L (9-20) mg/dL Creatinine 0.62 L (0.66-1.25) mg/dL Glucose 151 H (74-99) mg/dL Calcium 7.4 L (8.4-10.2) mg/dL Total Bilirubin 2.2 H (0.2-1.3) mg/dL AST 81 H (17-59) U/L Albumin 2.2 L (3.5-5.0) g/dL Assessment and Plan (1) Decompensation of cirrhosis of liver Narrative/Plan: 59-year-old male with a medical history significant for hepatitis C treatment cyndy, decompensated alcoholic cirrhosis, ascites with prior history of EtOH abuse for which she has been abstinent over the past few weeks. Patient recently diagnosed on admission to the hospital with decompensated cirrhosis at that time he received a paracentesis and was given diuretic therapy. However after being discharged home the patient was brought by with the medicine and presented back with increasing abdominal distention and associated shortness of breath. Denies any signs or symptoms of GI bleeding. No fevers, chills or other signs of infection at this time. Patient underwent ultrasound paracentesis today with 1.25 L of a site easily removed. Current Visit: Yes Status: Acute Code(s): K72.90 - HEPATIC FAILURE, UNSPECIFIED WITHOUT COMA SNOMED Code(s): 140291375 (2) Hepatitis C Current Visit: Yes Status: Acute Code(s): B19.20 - UNSPECIFIED VIRAL HEPATITIS C WITHOUT HEPATIC COMA SNOMED Code(s): 10139417 (3) Ascites Current Visit: Yes Status: Acute Code(s): R18.8 - OTHER ASCITES SNOMED Code(s): 514993611 Plan: Supportive care Okay for sodium restricted diet Lasix 40 mg daily Aldactone 50 mg daily Minitran BID added due to marginal blood pressures Extensive conversation with the patient regarding compliance with medications and low-sodium diet Continue alcohol abstinence Follow-up outpatient for continued treatment of decompensated cirrhosis as well as hepatitis C Thank you for allowing us to participate in the care of the patient we will continue to follow
[2020-01-09] MEDS: methylPREDNISolone SOD SUCCI 40 MG/ML 1 ML VIAL IV SCH (20:56)
[2020-01-10] MEDS: IPRATROPIUM-ALBUTEROL 3 ML NEB INHALATION SCH ×3 (03:07→11:36)
[2020-01-10 05:05] VITALS: TEMP 97.5
[2020-01-10] MEDS: methylPREDNISolone SOD SUCCI 40 MG/ML 1 ML VIAL IV SCH (05:42)
[2020-01-10] MEDS: NICOTINE 21MG/24HR PATCH TRANSDERM SCH (08:20)
[2020-01-10] MEDS: MIDODRINE 5 MG TAB PO SCH (08:20)
[2020-01-10] MEDS: THIAMINE 100 MG TAB PO SCH (08:20)
[2020-01-10] MEDS: ONDANSETRON 4 MG/2 ML VIAL IVP PRN (08:21)
[2020-01-10] MEDS: FORMOTEROL FUMARATE 20 MCG/2 ML NEBU INHALATION SCH (08:26)
[2020-01-10] MEDS: BUDESONIDE 1 MG/2 ML NEBU INHALATION SCH (08:26)
[2020-01-10 09:05] LABS: INR 1.5 (<1.2); Prothrombin Time 14.9 sec (9.0-12.0)
[2020-01-10 09:26] LABS: ALT 34 U/L (4-49); AST 89 U/L (17-59); African American GFR (CKD) >90 (>60 ml/min/1.73 sqM); Albumin 2.5 g/dL (3.5-5.0); Alkaline Phosphatase 114 U/L (38-126); Anion Gap 10 mmol/L; Blood Urea Nitrogen 9 mg/dL (9-20); Calcium 8.4 mg/dL (8.4-10.2); Carbon Dioxide 22 mmol/L (22-30); Chloride 102 mmol/L (98-107); Glucose 187 mg/dL (74-99); Non-African American GFR(CKD) >90 (>60 ml/min/1.73 sqM); Potassium 4.9 mmol/L (3.5-5.1); Sodium 134 mmol/L (137-145); Total Protein 8.5 g/dL (6.3-8.2)
[2020-01-10 10:21] VITALS: BP 93/68; PULSE 89; RESP 20
[2020-01-10] MEDS: SPIRONOLACTONE 25 MG TAB PO SCH (10:29)
[2020-01-10] MEDS: FUROSEMIDE 40 MG TAB PO SCH (11:08)
--- NOTE | 2020-01-12 22:11 | P.DS ---
Providers Date of admission: 01/10/20 08:52 Expected date of discharge: 01/10/20 Attending physician: Isaac Hodge Primary care physician[facility] Hospital Course: Chief Complaint: Abdominal distention History of presenting complaint: This is a pleasant [address] Mireles. Was in the hospital about 3 weeks ago. Diagnosed with tense ascites from alcoholic cirrhosis. Had been drinking up to then. Patient had paracentesis done. Patient is now stopped drinking alcohol. again tense ascites and presented for the same. Also short of breath and wheezing. Has not stopped smoking. Wheezing and coughing. No fever no chills. 1.25 L of straw-colored fluid was removed. Some relief. No edema. Admitted with-tense ascites, COPD exacerbation. Treated with bronchodilator steroids. Counseled about smoking. Today-much improved. Again counseled about smoking. Breathing much better eating much better. Cleared by GI. Discussion and discharge planning more than 35 minutes Consultation: Dr. Crockett from GI Physical examination: VITAL SIGNS: 97.5, 84, 18, 96/53, 95% room air GENERAL: laying in bed, spider nevi on the chest wall., Comfortable EYES: Pupils equal. Conjunctiva normal. HEENT: External appearance of nose and ears normal, oral cavity grossly normal. NECK: JVD not raised; masses not palpable. HEART: First and second heart sounds are normal; no edema. LUNGS: Respiratory rate increased; diminished breath sounds ABDOMEN: Soft, no tenderness no guarding or rigidity liver spleen not palpable, no masses palpable. PSYCH: Alert and oriented x3; mood and affect-tired MUSCULOSKELETAL: Wasting of muscles INVESTIGATIONS, reviewed in the clinical context: Potassium 4.[address] abdomen and pelvis-spoke also, peripheral nodular hepatic contour, hepatic steatosis,ascites White count 4.1 hemoglobin 10.7 pro time 14.5 potassium 3.2 sodium 1:30 creatinine 0.60 Total bilirubin 2.3 calcium 7.6 albumin 2.6 Assessment: -Large tense ascites in a patient with alcoholic cirrhosis. 1.5 L paracentesis- removed, POA -Severe hypokalemia -Alcoholic cirrhosis -Suspect secondary portal hypertension -Moderate protein calorie malnutrition with muscle wasting, decreased albumin -Alcoholic/nutritional myopathy -Acute severe COPD exacerbation in a current smoker, POA- -Hyperbilirubinemia -Vitamin K deficiency from cirrhosis, causing prolonged pro time Disposition: Home Patient Condition at Discharge: Stable Plan - Discharge Summary New Discharge Prescriptions: New Ipratropium-Albuterol Nebulize [Duoneb 0.5 mg-3 mg/3 ml Soln] 3 ml INHALATION TID #90 ml predniSONE 10 mg PO DAILY #30 tab Continue Albuterol Sulfate [Proair Hfa] 2 puff INHALATION RT-QID PRN PRN Reason: Shortness Of Breath Or Wheezing Fluticasone/Salmeterol [Airduo Respiclick 113-14 Mcg] 1 puff INHALATION RT- DAILY Albuterol Nebulized [Ventolin Nebulized] 2.5 mg INHALATION RT-Q6H PRN PRN Reason: Shortness Of Breath Spironolactone [Aldactone] 50 mg PO DAILY #30 tab Thiamine [Vitamin B-1] 100 mg PO BID-W/MEALS #60 tab Nicotine 21Mg/24Hr Patch [Habitrol] 1 patch TRANSDERM DAILY #14 patch Changed Furosemide [Lasix] 40 mg PO DAILY@1400 #30 tab Discharge Medication List Albuterol Sulfate [Proair Hfa] 2 puff INHALATION RT-QID PRN 06/20/14 [History] Albuterol Nebulized [Ventolin Nebulized] 2.5 mg INHALATION RT-Q6H PRN 12/28/19 [History] Fluticasone/Salmeterol [Airduo Respiclick 113-14 Mcg] 1 puff INHALATION RT-DAILY 12/28/19 [History] Spironolactone [Aldactone] 50 mg PO DAILY #30 tab 12/30/19 [Rx] Thiamine [Vitamin B-1] 100 mg PO BID-W/MEALS #60 tab 12/30/19 [Rx] Furosemide [Lasix] 40 mg PO DAILY@1400 #30 tab 01/10/20 [Rx] Ipratropium-Albuterol Nebulize [Duoneb 0.5 mg-3 mg/3 ml Soln] 3 ml INHALATION TID #90 ml 01/10/20 [Rx] Nicotine 21Mg/24Hr Patch [Habitrol] 1 patch TRANSDERM DAILY #14 patch 01/10/20 [Rx] predniSONE 10 mg PO DAILY #30 tab 01/10/20 [Rx] Follow up Appointment(s)/Referral(s): Mandeep Ernandez DO [Primary Care Provider] - 01/24/20 11:30 am Sam Curran MD [STAFF PHYSICIAN] - 02/18/20 2:30 pm Patient Instructions/Handouts: Ascites (IP) Activity/Diet/Wound Care/Special Instructions: Decrease Alcohol intake, take medications as prescribed. Discharge Disposition: HOME SELF-CARE
== END 2020-01-10 13:03 | disposition home or self-care (01) ==
LOC: EC 08:02 → 6NMEDSUR 10:45 → INTOOBSV 01-10 08:52 → OBSVTOIN 01-10 08:52 → UNDODISIN 01-10 13:03
PROVIDERS: ADMIT Hospitalist; ATTEND Hospitalist
DX: K70.31 Alcoholic cirrhosis of liver with ascites (principal); E44.0 Moderate protein-calorie malnutrition; J44.1 Chronic obstructive pulmonary disease with (acute) exacerbation; G72.1 Alcoholic myopathy; E87.6 Hypokalemia; F17.200 Nicotine dependence, unspecified, uncomplicated; E56.1 Deficiency of vitamin K; H54.8 Legal blindness, as defined in USA; R62.7 Adult failure to thrive; Z91.14 Patient's other noncompliance with medication regimen; Z86.14 Personal history of Methicillin resistant Staphylococcus aureus infection; Z80.9 Family history of malignant neoplasm, unspecified; Z81.8 Family history of other mental and behavioral disorders; B19.20 Unspecified viral hepatitis C without hepatic coma; F10.11 Alcohol abuse, in remission; K72.90 Hepatic failure, unspecified without coma; Z79.899 Other long term (current) drug therapy; Z88.6 Allergy status to analgesic agent; Z87.01 Personal history of pneumonia (recurrent); Z86.61 Personal history of infections of the central nervous system
CPT/HCPCS: 96376 ×2; 96361 ×2; 96375 ×2; 96374; 99285; 36415; 80053 ×3; 82150; 83690; 83735; 84132; 85025; 85610 ×3; 85730; 81003; 49083; G0378 ×3; S4990 ×2; J2270 ×2; J2920 ×2; J2405; C9113